=== PATIENT | male | born 1945 | race Caucasian/White ===

== ENCOUNTER 2017-03-12 09:53 | Day surgery (SDC) | payer MEDICARE ==
[2017-03-04 11:10] VITALS: BMI 29.4
[~2017-03-12 09:53] MED LIST: HEPARIN SODIUM,PORCINE 5,000 UNIT/ML 1 ML VIAL SQ ONE; LACTATED RINGERS 1,000 ML IV SCH; MORPHINE SULFATE 4 MG/ML SYRINGE IV PRN; ceFAZolin IN SWFI 2 GM/20 ML SYRINGE IVP ONE
--- NOTE | 2017-03-12 10:56 | P.GSHP ---
History of Present Illness H&P Date: 03/12/17 CHIEF COMPLAINT: Inguinal hernia, left. HISTORY OF PRESENT ILLNESS: The patient is a 59-year-old male who presents with a history of swelling and pain along the left groin. He's noted increased swelling including pain of the area. Now he presents for repair of his inguinal hernia. PAST MEDICAL HISTORY: Please see list. PAST SURGICAL HISTORY: Please see list. MEDICATIONS: Please see list. ALLERGIES: Please see list. SOCIAL HISTORY: No illicit drug use FAMILY HISTORY: No reports of Crohn disease or ulcerative colitis. REVIEW OF ORGAN SYSTEMS: CONSTITUTIONAL: No reports of fevers or chills. No reports of weight loss despite prior attempts. GI: Denies any blood in stools or constipation. PHYSICAL EXAM: VITAL SIGNS: Stable GENERAL: Well-developed pleasant male in no acute distress. HEENT: No scleral icterus. Extraocular movements grossly intact. Moist buccal mucosa. NECK: Supple without lymphadenopathy. CHEST: Unlabored respirations. Equal bilateral excursions. CARDIOVASCULAR: Regular rate and rhythm. Distal 2+ pulses. ABDOMEN: Soft, nondistended. No peritoneal signs. Palpable defect of the left groin. MUSCULOSKELETAL: No clubbing, cyanosis, or edema. ASSESSMENT: 1. Inguinal hernia, left and symptomatic. PLAN: 1. Recommend proceeding with robotic inguinal repair with mesh with possible bilateral approach. 2. Benefits and risks of surgical intervention was discussed including possibility of open technique. 3. May need overnight observation pending anticipated postoperative pain. 4. DVT prophylaxis. 5. Antibiotic prophylaxis. Past Medical History Past Medical History: CVA/TIA, GERD/Reflux Additional Past Medical History / Comment(s): 2 CVAs, L inguinal hernia. History of Any Multi-Drug Resistant Organisms: None Reported Past Surgical History: Orthopedic Surgery Additional Past Surgical History / Comment(s): Colonoscopy with perforation and emergency surgery to repair. R shoulder fracture with surgery. Past Anesthesia/Blood Transfusion Reactions: No Reported Reaction Past Psychological History: No Psychological Hx Reported Additional Psychological History / Comment(s): Pt resides with his spouse. He is independent. Smoking Status: Former smoker Past Alcohol Use History: Daily Additional Past Alcohol Use History / Comment(s): couple beers a day and stopping 03/04/17 for surgery Past Drug Use History: None Reported - Past Family History Mother Family Medical History: Renal Disease Additional Family Medical History / Comment(s): polycystic kidney disease Father Family Medical History: Myocardial Infarction ([place]) Additional Family Medical History / Comment(s): Father at the age of 80yrs from probable [place]. Medications and Allergies Home Medications Medication Instructions Recorded Confirmed Type Aspirin 325 mg PO DAILY 01/13/17 03/04/17 History Omeprazole 40 mg PO DAILY #90 capsule. 01/14/17 03/04/17 Rx Allergies Allergy/AdvReac Type Severity Reaction Status Date / Time No Known Allergies Allergy Verified 03/04/17 11:10 Surgical - Exam Vital Signs Temp Pulse Resp BP 97.8 F 68 18 161/77 03/12/17 10:52 03/12/17 10:52 03/12/17 10:52 03/12/17 10:52
[2017-03-12] MEDS ORDERED: DEXAMETHASONE SOD PHOSPHATE 10 MG/ML 1 ML VIAL IV STA (10:58)
[2017-03-12] MEDS ORDERED: LIDOCAINE 1% 20 ML VIAL (10MG/ML) FOR IV START INTRADERMA ONE (11:16)
[2017-03-12] MEDS: ONDANSETRON 4 MG/2 ML VIAL IVP STA ×2 (11:26→16:19)
[2017-03-12] MEDS ORDERED: MIDAZOLAM 2 MG/2 ML VIAL ONE (14:21)
[2017-03-12] MEDS ORDERED: PROPOFOL 10 MG/ML 20 ML VIAL IV ONE (14:21)
[2017-03-12] MEDS ORDERED: SUCCINYLCHOLINE CHLORIDE 100 MG/5 ML SYR IV ONE (14:21)
[2017-03-12] MEDS ORDERED: GLYCOPYRROLATE 0.2 MG/ML 2 ML VIAL ONE (14:21)
[2017-03-12] MEDS ORDERED: fentaNYL (PF) 50 MCG/ML 2 ML AMP ONE (14:21)
[2017-03-12] MEDS ORDERED: ROCURONIUM BROMIDE 10 MG/ML 10 ML VIAL IV ONE (14:21)
[2017-03-12] MEDS ORDERED: LIDOCAINE 1% INJ 10MG/ML (20 ML MDV) ONE (14:21)
[2017-03-12] MEDS ORDERED: NEOSTIGMINE 1 MG/ML 10 ML VIAL ONE (14:21)
[2017-03-12] MEDS ORDERED: BUPIVACAINE (PF) 0.25% 30 ML VIAL SQ ONE (14:54)
[2017-03-12] MEDS ORDERED: LACTATED RINGERS 1,000 ML IV ONE (15:05)
[2017-03-12 15:08] LABS: Anisocytosis Slight; Basophils % (A) 1 %; Eosinophils % (A) 0 %; HCT 40.1 % (39.0-53.0); HGB 13.2 gm/dL (13.0-17.5); Lymphocytes # (A) 0.4 k/uL (1.0-4.8); Lymphocytes % (A) 7 %; MCH 31.3 pg (25.0-35.0); MCHC 32.9 g/dL (31.0-37.0); MCV 95.2 fL (80.0-100.0); Mean Platelet Volume 7.7; Monocytes # (A) 0.1 k/uL (0-1.0); Monocytes % (A) 2 %; Neutrophils # (A) 5.5 k/uL (1.3-7.7); Neutrophils % (A) 90 %; Platelet Count 185 k/uL (150-450); RBC 4.21 m/uL (4.30-5.90); RDW 18.5 % (11.5-15.5); WBC 6.2 k/uL (3.8-10.6)
[2017-03-12 15:21] LABS: ALT 41 U/L (21-72); AST 22 U/L (17-59); Albumin 3.6 g/dL (3.5-5.0); Alkaline Phosphatase 48 U/L (38-126); Anion Gap 11 mmol/L; Blood Urea Nitrogen 11 mg/dL (9-20); Calcium 9.1 mg/dL (8.4-10.2); Carbon Dioxide 20 mmol/L (22-30); Chloride 106 mmol/L (98-107); Glucose 112 mg/dL (74-99); Potassium 4.5 mmol/L (3.5-5.1); Sodium 137 mmol/L (137-145); Total Bilirubin 0.6 mg/dL (0.2-1.3)
[2017-03-12] MEDS ORDERED: TAMSULOSIN 0.4 MG CAP.ER.24H PO STA ×2 (15:59→19:55)
[2017-03-12] MEDS ORDERED: ACETAMINOPHEN TAB 325 MG TAB PO PRN (16:02)
[2017-03-12] MEDS ORDERED: NALOXONE 0.4 MG/ML 1 ML VIAL IV PRN (16:02)
[2017-03-12 16:04] VITALS: TEMP 98.3
[2017-03-12 16:06] VITALS: RESP 16
--- NOTE | 2017-03-12 16:11 | P.PCN ---
Date of Procedure: 03/12/17 Preoperative Diagnosis: Symptomatic large left inguinal hernia with incarceration Postoperative Diagnosis: Same, large direct inguinal hernia on 4 cm initial, left indirect hernia 1 cm Procedure(s) Performed: Robotic assisted laparoscopic reduction and repair of incarcerated left inguinal hernia with mesh Anesthesia: MARICRUZ, local Surgeon: Taryn Aranda Estimated Blood Loss (ml): 5 Pathology: other (Inguinal hernia sac) Condition: stable Disposition: same day
[2017-03-12] MEDS: HYDROmorphone 0.5 MG/0.5 ML SYRINGE IVP PRN ×2 (16:19→16:28)
[2017-03-12 20:34] VITALS: BP 128/72; PULSE 99
--- NOTE | 2017-04-18 21:14 | P.OP ---
Date of Procedure: 03/12/17 Description of Procedure: SURGEON: KRZYSZTOF CARRASCO MD ASSISTANTS: 1. KARL FUENTES 2. BARTOLOME LOVE PREOPERATIVE DIAGNOSES: 1. Symptomatic large left inguinal hernia with incarceration 2. History of cerebrovascular accident. 3. Gastroesophageal reflux disease. POSTOPERATIVE DIAGNOSES: 1. Symptomatic large left inguinal hernia, direct, with incarceration 2. History of cerebrovascular accident. 3. Gastroesophageal reflux disease. 4. Right inguinal hernia, direct. OPERATION: 1. Robotic-assisted da Ros[employer] Xi laparoscopic reduction and repair of incarcerated left inguinal hernia with mesh, 11.[address] 2. Robotic-assisted da Rosales Xi laparoscopic excision of incarcerated left inguinal lipoma. ANESTHESIA: General with local anesthetic ESTIMATED BLOOD LOSS: 5 mL. SPECIMENS REMOVED: other (Left inguinal lipoma) COMPLICATIONS: None. Condition: stable Disposition: same day INDICATIONS: The patient is a 58-year-old gentleman who presents with history of right groin swelling. He has a personal history of previous left inguinal hernia repair. Now presents for definitive surgical intervention. Laparoscopic versus open and robotic approaches were discussed. Benefits and risks including bleeding, infection, and injury to the vas deferens as well as sterility and chronic groin pain were reviewed. Placement of mesh was also described. Informed consent was obtained. DESCRIPTION: In the preoperative area, the patient was marked with indelible marker along the inguinal hernia. The patient was brought to the operating room and initially laid in supine position. The abdomen had been prepped and draped in standard sterile fashion. Ioban draping was also placed. Conroy catheter was placed. Prior to incision, a timeout protocol was confirmed with surgical team regarding patient's name including procedures to be performed and location along the right groin. Initial positioning for the robotic assisted ports were selected whereby 20 cm superior to the target anatomy, 0 degree 5 mm laparoscopic trocar entry was performed at the left upper quadrant. The abdomen was insufflated to 15 mmHg which he had tolerated well. Additionally, 4 cm direct inguinal hernia along the left groin was found. Next, along the epigastrium, 8 mm robot trocar was placed. An 8-mm robotic trocar was placed under direct visualization at the right upper quadrant. The 5 mm port was exchanged for an 8 mm trocar. All trocars were positioned 8 to 10-cm apart from each other. The Da Rosales XI robot was primed, draped, prepared for docking along the left side of the patient. I then went to the [employer] Xi console. The recovery assistant was at bedside for exchange of the robot arms and equipment. At the left groin, a 4 cm direct inguinal hernia and 1-cm indirect inguinal hernia was identified. The sigmoid colon was also identified along the hernia sac. The sigmoid colon was reduced. The hernia sac was evaginated whereby the peritoneum was scored using Endo scissors with cautery. Once completely reduced into the abdominal cavity, the peritoneal sac of the hernia was stripped and a lipoma of the left groin was reduced. The sac was resected and then passed off for further pathological analysis. The size of the hernia defect was 4 cm with intraoperative films obtained. Using a 2-0 Surgidac, the peritoneal defect of the left inguinal hernia site was closed using a pursestring suture of 2-0 Surgidac. The defect was found to be completely closed with complete reduction of the left inguinal hernia was confirmed. A separate right inguinal hernia was identified however per patient request was undisturbed. As an onlay, an 11.[address] mesh by [employer] was initially cut in half and entered into the abdominal cavity via the 8 mm trocar. The mesh was tacked to the pelvis using 2-0 VLOC x 9-inch length sutures. The robot was undocked from the patient's bedside. I then rescrubbed into the case. The fascial defect was reapproximated using 0-Vicryl and a Jewel Alessandro. Insufflation was released from the abdominal cavity and all instruments were removed from the abdominal cavity. The rest of incisions were reapproximated using 4-0 Monocryl in a running subcuticular fashion. Local anesthetic was placed along the incision including groin block. Incisions were cleansed using dilute hydrogen peroxide. Dermabond was applied to the skin. At the end of the procedure, the needle, sponge and instrument counts had been verified correct by the surgical rn. The patient had tolerated the procedure well and was taken to the postanesthesia care unit in stable condition. FINDINGS: 1. Large left direct inguinal hernia, intial over 4 cm, Nyhus type III, with incarceration. 2. Right direct inguinal hernia 3 cm without incarceration. 3. Left indirect hernia 1 cm Plan - Discharge Summary Discharge Rx Participant: No New Discharge Prescriptions: New Tamsulosin [Flomax] 0.4 mg PO ONCE #5 cap.er.24h Continue Aspirin 325 mg PO DAILY Omeprazole 40 mg PO DAILY #90 capsule. Discharge Medication List Aspirin 325 mg PO DAILY 01/13/17 [History] Omeprazole 40 mg PO DAILY #90 capsule. 01/14/17 [Rx] Tamsulosin [Flomax] 0.4 mg PO ONCE #5 cap.er.24h 03/12/17 [Rx] Follow up Appointment(s)/Referral(s): Krzysztof Carrasco MD [STAFF PHYSICIAN] - 03/17/17 (MARLETTE... Call to confirm time) Patient Instructions/Handouts: *Surgery [facility] - (Anesthesia) Discharge Instructions Outpatient Surgery, Laparoscopic Herniorrhaphy (DC) Activity/Diet/Wound Care/Special Instructions: No lifting oVER 4 pounds in 2 weeks. May shower. No bath tub soaks. OK TO RESUME ASPIRIN AND TAKE NORCO ALREADY PRESCRIBED AT HOME FOR PAIN. Discharge Disposition: HOME SELF-CARE
== END 2017-03-12 20:30 | disposition home or self-care (01) ==
LOC: OR 09:53
PROVIDERS: ATTEND Surgery Plastic and Reconstructive Surgery
DX: K40.30 Unilateral inguinal hernia, with obstruction, without gangrene, not specified as recurrent (principal); K21.9 Gastro-esophageal reflux disease without esophagitis; Z86.73 Personal history of transient ischemic attack (TIA), and cerebral infarction without residual deficits; Z87.891 Personal history of nicotine dependence; Z79.82 Long term (current) use of aspirin; Z79.899 Other long term (current) drug therapy
CPT/HCPCS: 49650; 93005; 80053; 85025; 88302; C1781; J2250; J1644; J1100; J2710; J0690; J2405; J2001; J3010; J0330; J2704; J1170

== ENCOUNTER 2019-02-10 03:58 | Inpatient (IN) | payer MEDICARE ==
[2019-02-10] MEDS ORDERED: HYDROmorphone 1 MG/ML 1 ML SYRINGE IVP STA (04:01)
[2019-02-10] MEDS ORDERED: SODIUM CHLORIDE 0.9% 500 ML 500 ML IV ONE ×2 (04:01→05:09)
[2019-02-10 04:31] LABS: Anisocytosis Slight; Basophils # (A) 0.2 k/uL (0-0.2); Basophils % (A) 2 %; Eosinophils # (A) 0.1 k/uL (0-0.7); Eosinophils % (A) 1 %; HCT 51.3 % (39.0-53.0); HGB 16.9 gm/dL (13.0-17.5); Lymphocytes # (A) 0.3 k/uL (1.0-4.8); Lymphocytes % (A) 3 %; MCH 32.3 pg (25.0-35.0); MCHC 32.9 g/dL (31.0-37.0); MCV 98.2 fL (80.0-100.0); Mean Platelet Volume 7.9; Monocytes # (A) 0.6 k/uL (0-1.0); Monocytes % (A) 5 %; Neutrophils % (A) 89 %; Platelet Count 232 k/uL (150-450); RBC 5.22 m/uL (4.30-5.90); RDW 16.5 % (11.5-15.5); WBC 11.2 k/uL (3.8-10.6)
[2019-02-10 04:39] LABS: Albumin 4.2 g/dL (3.5-5.0); Calcium 9.1 mg/dL (8.4-10.2); Total Bilirubin 0.7 mg/dL (0.2-1.3); Total Protein 7.1 g/dL (6.3-8.2)
[2019-02-10] MEDS ORDERED: HYDROmorphone 1 MG/ML 1 ML SYRINGE IVP PRN ×2 (04:43→09:05)
[2019-02-10] MEDS ORDERED: HYDROmorphone 0.5 MG/0.5 ML SYRINGE IVP PRN (04:43)
[2019-02-10] MEDS ORDERED: ONDANSETRON 4 MG/2 ML VIAL IVP PRN ×2 (04:43→09:05)
[2019-02-10] MEDS ORDERED: NALOXONE 0.4 MG/ML 1 ML VIAL IV PRN ×3 (04:43→09:51)
[2019-02-10 04:50] LABS: INR 0.9 (<1.2); Prothrombin Time 9.9 sec (9.0-12.0)
--- NOTE | 2019-02-10 04:55 | ED ---
General Adult HPI - General Chief complaint: Abdominal Pain Stated complaint: Abd Pain Time Seen by Provider: 02/10/19 04:01 Source: patient, EMS, RN notes reviewed, old records reviewed Mode of arrival: EMS Limitations: no limitations - History of Present Illness Initial comments: 73-year-old male presents for evaluation of abdominal pain, abdominal di stention. Patient was transferred from outside facility with CT findings of intraperitoneal free air. Patient developed sudden onset abdominal pain and distention. Approximately 9 PM. He states he put her at 6 PM. He has previous history of bowel perforation in 2017 following a colonoscopy. He had several episodes of vomiting prior to transfer. He received multiple doses of antiemetics and pain medication without significant improvement. At the time of arrival he continues to complain of severe abdominal pain. - Related Data Home Medications Medication Instructions Recorded Confirmed Aspirin 325 mg PO DAILY 01/13/17 03/04/17 Previous Rx's Medication Instructions Recorded Omeprazole 40 mg PO DAILY #90 capsule. 01/14/17 Tamsulosin [Flomax] 0.4 mg PO ONCE #5 cap.er.24h 03/12/17 Allergies Allergy/AdvReac Type Severity Reaction Status Date / Time No Known Allergies Allergy Verified 03/04/17 11:10 Review of Systems ROS Statement: Those systems with pertinent positive or pertinent negative responses have been documented in the HPI. ROS Other: All systems not noted in ROS Statement are negative. Past Medical History Past Medical History: CVA/TIA, GERD/Reflux Additional Past Medical History / Comment(s): 2 CVAs, L inguinal hernia. History of Any Multi-Drug Resistant Organisms: None Reported Past Surgical History: Orthopedic Surgery Additional Past Surgical History / Comment(s): Colonoscopy with perforation and emergency surgery to repair. R shoulder fracture with surgery. Past Anesthesia/Blood Transfusion Reactions: No Reported Reaction Past Psychological History: No Psychological Hx Reported Smoking Status: Former smoker Past Alcohol Use History: Daily Past Drug Use History: None Reported - Past Family History Mother Family Medical History: Renal Disease Additional Family Medical History / Comment(s): polycystic kidney disease Father Family Medical History: Myocardial Infarction ([place]) Additional Family Medical History / Comment(s): Father at the age of 80yrs from probable [place]. General Exam Limitations: no limitations General appearance: alert, in no apparent distress Head exam: Present: atraumatic, normocephalic Eye exam: Present: normal appearance, PERRL ENT exam: Present: mucous membranes dry Neck exam: Present: normal inspection. Absent: tenderness, meningismus Respiratory exam: Present: normal lung sounds bilaterally. Absent: respiratory distress, wheezes Cardiovascular Exam: Present: normal rhythm, tachycardia GI/Abdominal exam: Present: distended, tenderness, guarding, rebound, rigid Extremities exam: Present: normal inspection, normal capillary refill. Absent: pedal edema Neurological exam: Present: alert, oriented X3, CN II-XII intact. Absent: motor sensory deficit Psychiatric exam: Present: normal affect, normal mood Skin exam: Present: warm, dry, intact. Absent: cyanosis, diaphoretic Course Vital Signs 02/10/19 02/10/19 04:00 04:31 Temperature 98.6 F Pulse Rate 112 H 115 H Respiratory 18 18 Rate Blood Pressure 179/103 164/108 O2 Sat by Pulse 93 L 94 L Oximetry Medical Decision Making - Medical Decision Making 73-year-old male with intraperitoneal free air. CT reviewed by myself and discussed with the radiologist, he has intraperitoneal free air in the left upper abdomen. personally reviewed the CT, there was concern for volvulus. NG tube was placed in the emergency department. He's continued on IV antibiotics, given pain medication. NPO All laboratory studies are repeated these are pending. I discussed case with Dr. Bonilla he will be admitted to general surgery with plan for surgery at 6:30 AM. - Lab Data Result diagrams: 02/10/19 04:16 02/10/19 04:16 Lab Results 02/10/19 02/10/19 02/10/19 Range/Units 04:16 04:16 04:16 WBC 11.2 H (3.8-10.6) k/uL RBC 5.22 (4.30-5.90) m/uL Hgb 16.9 (13.0-17.5) gm/dL Hct 51.3 (39.0-53.0) % MCV 98.2 (80.0-100.0) fL MCH 32.3 (25.0-35.0) pg MCHC 32.9 (31.0-37.0) g/dL RDW 16.5 H (11.5-15.5) % Plt Count 232 (150-450) k/uL Neutrophils % 89 % Lymphocytes % 3 % Monocytes % 5 % Eosinophils % 1 % Basophils % 2 % Neutrophils # 10.0 H (1.3-7.7) k/uL Lymphocytes # 0.3 L (1.0-4.8) k/uL Monocytes # 0.6 (0-1.0) k/uL Eosinophils # 0.1 (0-0.7) k/uL Basophils # 0.2 (0-0.2) k/uL Anisocytosis Slight PT (9.0-12.0) sec INR (<1.2) APTT (22.0-30.0) sec Sodium 136 L (137-145) mmol/L Potassium 4.0 (3.5-5.1) mmol/L Chloride 104 (98-107) mmol/L Carbon Dioxide 21 L (22-30) mmol/L Anion Gap 11 mmol/L BUN 16 (9-20) mg/dL Creatinine 0.99 (0.66-1.25) mg/dL Est GFR (CKD-EPI)AfAm 86 (>60 ml/min/1.73 sqM) Est GFR (CKD-EPI)NonAf 74 (>60 ml/min/1.73 sqM) Glucose 188 H (74-99) mg/dL Plasma Lactic Acid Jason (0.7-2.0) mmol/L Calcium 9.1 (8.4-10.2) mg/dL Total Bilirubin 0.7 (0.2-1.3) mg/dL AST 29 (17-59) U/L ALT 20 (4-49) U/L Alkaline Phosphatase 70 (38-126) U/L Total Protein 7.1 (6.3-8.2) g/dL Albumin 4.2 (3.5-5.0) g/dL Blood Type Blood Type Confirm Blood Type Recheck No Previous Record Bld Type Recheck Status CABO Indicated Antibody Screen Spec Expiration Date 02/13/2019 - 231502/10/19 02/10/19 02/10/19 Range/Units 04:16 04:16 04:16 WBC (3.8-10.6) k/uL RBC (4.30-5.90) m/uL Hgb (13.0-17.5) gm/dL Hct (39.0-53.0) % MCV (80.0-100.0) fL MCH (25.0-35.0) pg MCHC (31.0-37.0) g/dL RDW (11.5-15.5) % Plt Count (150-450) k/uL Neutrophils % % Lymphocytes % % Monocytes % % Eosinophils % % Basophils % % Neutrophils # (1.3-7.7) k/uL Lymphocytes # (1.0-4.8) k/uL Monocytes # (0-1.0) k/uL Eosinophils # (0-0.7) k/uL Basophils # (0-0.2) k/uL Anisocytosis PT 9.9 (9.0-12.0) sec INR 0.9 (<1.2) APTT 22.0 (22.0-30.0) sec Sodium (137-145) mmol/L Potassium (3.5-5.1) mmol/L Chloride (98-107) mmol/L Carbon Dioxide (22-30) mmol/L Anion Gap mmol/L BUN (9-20) mg/dL Creatinine (0.66-1.25) mg/dL Est GFR (CKD-EPI)AfAm (>60 ml/min/1.73 sqM) Est GFR (CKD-EPI)NonAf (>60 ml/min/1.73 sqM) Glucose (74-99) mg/dL Plasma Lactic Acid Jason 1.8 (0.7-2.0) mmol/L Calcium (8.4-10.2) mg/dL Total Bilirubin (0.2-1.3) mg/dL AST (17-59) U/L ALT (4-49) U/L Alkaline Phosphatase (38-126) U/L Total Protein (6.3-8.2) g/dL Albumin (3.5-5.0) g/dL Blood Type Blood Type Confirm B Positive Blood Type Recheck Bld Type Recheck Status Antibody Screen Spec Expiration Date 02/10/19 Range/Units 04:18 WBC (3.8-10.6) k/uL RBC (4.30-5.90) m/uL Hgb (13.0-17.5) gm/dL Hct (39.0-53.0) % MCV (80.0-100.0) fL MCH (25.0-35.0) pg MCHC (31.0-37.0) g/dL RDW (11.5-15.5) % Plt Count (150-450) k/uL Neutrophils % % Lymphocytes % % Monocytes % % Eosinophils % % Basophils % % Neutrophils # (1.3-7.7) k/uL Lymphocytes # (1.0-4.8) k/uL Monocytes # (0-1.0) k/uL Eosinophils # (0-0.7) k/uL Basophils # (0-0.2) k/uL Anisocytosis PT (9.0-12.0) sec INR (<1.2) APTT (22.0-30.0) sec Sodium (137-145) mmol/L Potassium (3.5-5.1) mmol/L Chloride (98-107) mmol/L Carbon Dioxide (22-30) mmol/L Anion Gap mmol/L BUN (9-20) mg/dL Creatinine (0.66-1.25) mg/dL Est GFR (CKD-EPI)AfAm (>60 ml/min/1.73 sqM) Est GFR (CKD-EPI)NonAf (>60 ml/min/1.73 sqM) Glucose (74-99) mg/dL Plasma Lactic Acid Jason (0.7-2.0) mmol/L Calcium (8.4-10.2) mg/dL Total Bilirubin (0.2-1.3) mg/dL AST (17-59) U/L ALT (4-49) U/L Alkaline Phosphatase (38-126) U/L Total Protein (6.3-8.2) g/dL Albumin (3.5-5.0) g/dL Blood Type B Positive Blood Type Confirm Blood Type Recheck Bld Type Recheck Status Antibody Screen NEGATIVE Spec Expiration Date Disposition Clinical Impression: Sigmoid volvulus Disposition: ADMITTED IP TO THIS [facility] Condition: Serious Is patient prescribed a controlled substance at d/c from ED?: No Referrals: Lacey Alexandra MD [Primary Care Provider] - 1-2 days Decision to Admit Reason: Admit from EC Decision Date: 02/10/19 Decision Time: 05:12
--- NOTE | 2019-02-10 05:32 | XR ---
INDICATION: NG placement COMPARISON: CXR 01/13/17 FINDINGS: Portable AP view of the chest is provided. There are low lung volumes with bronchovascular crowding. There are opacities at the left lung base. There is no pleural effusion or pneumothorax. Cardiomediastinal silhouette and pulmonary vascularity are normal. Enteric tube extends to the stomach. There are no acute osseous findings. IMPRESSION: 1. Enteric tube extends to the stomach. 2. Left basilar opacities, atelectasis or infiltrate.
--- NOTE | 2019-02-10 06:44 | P.GSHP ---
History of Present Illness H&P Date: 02/10/19 Chief Complaint: cecal volvulus 73-year-old male went to [facility] emergency department complaining of abdominal bloating. Pain began yesterday evening. He was found have an elevated white blood cell count. Mildly tachycardic. CAT scan was performed. Initially I was called stating the patient had a distended stomach with free air. CAT scan was reviewed and reveals evidence of cecal volvulus with ischemic changes. No definitive free air seen. Nasogastric tube was placed in the ER without significant output. - Review of Systems Comment: The patient denies any acute changes in vision or hearing, no dysphagia or odynophagia, no chest pain or shortness of breath, no dysuria or hematuria, no headache, no runny nose, no rectal bleeding or melena, no unexplained weight loss Past Medical History Past Medical History: CVA/TIA, GERD/Reflux Additional Past Medical History / Comment(s): 2 CVAs, L inguinal hernia. History of Any Multi-Drug Resistant Organisms: None Reported Past Surgical History: Orthopedic Surgery Additional Past Surgical History / Comment(s): Colonoscopy with perforation and emergency surgery to repair. R shoulder fracture with surgery. Past Anesthesia/Blood Transfusion Reactions: No Reported Reaction Past Psychological History: No Psychological Hx Reported Smoking Status: Former smoker Past Alcohol Use History: Daily Past Drug Use History: None Reported - Past Family History Mother Family Medical History: Renal Disease Additional Family Medical History / Comment(s): polycystic kidney disease Father Family Medical History: Myocardial Infarction ([place]) Additional Family Medical History / Comment(s): Father at the age of 80yrs from probable [place]. Medications and Allergies Home Medications Medication Instructions Recorded Confirmed Type Aspirin 325 mg PO DAILY 01/13/17 03/04/17 History Omeprazole 40 mg PO DAILY #90 capsule. 01/14/17 03/04/17 Rx Tamsulosin [Flomax] 0.4 mg PO ONCE #5 cap.er.24h 03/12/17 Rx Allergies Allergy/AdvReac Type Severity Reaction Status Date / Time No Known Allergies Allergy Verified 03/04/17 11:10 Surgical - Exam Vital Signs Temp Pulse Resp BP Pulse Ox 98.6 F 112 H 18 179/103 93 L 02/10/19 04:00 02/10/19 04:00 02/10/19 04:00 02/10/19 04:00 02/10/19 04:00 Physical exam: General: Well-developed, well-nourished, mild distress HEENT: Normocephalic, sclerae nonicteric Abdomen: diffuse tenderness and abdominal distention noted, peritoneal signs present Extremities: No edema Neuro: Alert and oriented Results - Labs 02/10/19 04:16 02/10/19 04:16 Abnormal Lab Results - Last 24 Hours (Table) 02/10/19 02/10/19 Range/Units 04:16 04:16 WBC 11.2 H (3.8-10.6) k/uL RDW 16.5 H (11.5-15.5) % Neutrophils # 10.0 H (1.3-7.7) k/uL Lymphocytes # 0.3 L (1.0-4.8) k/uL Sodium 136 L (137-145) mmol/L Carbon Dioxide 21 L (22-30) mmol/L Glucose 188 H (74-99) mg/dL Diabetes panel 02/10/19 Range/Units 04:16 Sodium 136 L (137-145) mmol/L Potassium 4.0 (3.5-5.1) mmol/L Chloride 104 (98-107) mmol/L Carbon Dioxide 21 L (22-30) mmol/L BUN 16 (9-20) mg/dL Creatinine 0.99 (0.66-1.25) mg/dL Glucose 188 H (74-99) mg/dL Calcium 9.1 (8.4-10.2) mg/dL AST 29 (17-59) U/L ALT 20 (4-49) U/L Alkaline Phosphatase 70 (38-126) U/L Total Protein 7.1 (6.3-8.2) g/dL Albumin 4.2 (3.5-5.0) g/dL Calcium panel 02/10/19 Range/Units 04:16 Calcium 9.1 (8.4-10.2) mg/dL Albumin 4.2 (3.5-5.0) g/dL Pituitary panel 02/10/19 Range/Units 04:16 Sodium 136 L (137-145) mmol/L Potassium 4.0 (3.5-5.1) mmol/L Chloride 104 (98-107) mmol/L Carbon Dioxide 21 L (22-30) mmol/L BUN 16 (9-20) mg/dL Creatinine 0.99 (0.66-1.25) mg/dL Glucose 188 H (74-99) mg/dL Calcium 9.1 (8.4-10.2) mg/dL Adrenal panel 02/10/19 Range/Units 04:16 Sodium 136 L (137-145) mmol/L Potassium 4.0 (3.5-5.1) mmol/L Chloride 104 (98-107) mmol/L Carbon Dioxide 21 L (22-30) mmol/L BUN 16 (9-20) mg/dL Creatinine 0.99 (0.66-1.25) mg/dL Glucose 188 H (74-99) mg/dL Calcium 9.1 (8.4-10.2) mg/dL Total Bilirubin 0.7 (0.2-1.3) mg/dL AST 29 (17-59) U/L ALT 20 (4-49) U/L Alkaline Phosphatase 70 (38-126) U/L Total Protein 7.1 (6.3-8.2) g/dL Albumin 4.2 (3.5-5.0) g/dL Assessment and Plan (1) Cecal volvulus Narrative/Plan: clinical scenario discussed with the patient. Patient requires laparotomy with right colectomy. Plan anastomosis at this time. Risks of bleeding, infection, leak, abscess, obstruction, hernia, sepsis, anesthesia related count locations. He understands and wishes to proceed. Current Visit: Yes Status: Acute Code(s): K56.2 - VOLVULUS SNOMED Code(s): 210922851
[2019-02-10] MEDS ORDERED: ROCURONIUM BROMIDE 10 MG/ML 10 ML VIAL IV ONE (06:51)
[2019-02-10] MEDS ORDERED: GLYCOPYRROLATE 0.2 MG/ML 2 ML VIAL ONE (06:51)
[2019-02-10] MEDS ORDERED: LIDOCAINE 1% INJ 10MG/ML (20 ML MDV) ONE (06:51)
[2019-02-10] MEDS ORDERED: SUCCINYLCHOLINE CHLORIDE 100 MG/5 ML SYR IV ONE (06:51)
[2019-02-10] MEDS ORDERED: fentaNYL (PF) 50 MCG/ML 2 ML AMP ONE (06:51)
[2019-02-10] MEDS ORDERED: PROPOFOL 10 MG/ML 20 ML VIAL IV ONE (06:51)
[2019-02-10] MEDS ORDERED: NEOSTIGMINE 1 MG/ML 10 ML VIAL ONE (06:51)
[2019-02-10] MEDS ORDERED: metroNIDAZOLE-NS PMX 500 MG in SALINE 1 100ML.BAG IVPB STA (06:56)
[2019-02-10] MEDS ORDERED: LACTATED RINGERS 1,000 ML IV ONE ×3 (06:58→10:41)
[2019-02-10] MEDS ORDERED: SODIUM CHLORIDE 0.9% 100 ML with ceFAZolin 2,000 MG IV ONE ×2 (07:10)
[2019-02-10] MEDS ORDERED: METOCLOPRAMIDE 5 MG/ML 2 ML VIAL IVP PRN (09:05)
[2019-02-10] MEDS ORDERED: HYDROmorphone 0.5 MG/0.5 ML SYRINGE IVP ONE (09:23)
--- NOTE | 2019-02-10 09:34 | P.OP ---
Date of Procedure: 02/10/19 Procedure(s) Performed: PREOPERATIVE DIAGNOSIS: Cecal volvulus POSTOPERATIVE DIAGNOSIS: Cecal volvulus with full-thickness necrosis PROCEDURE: Exporter laparotomy with right colectomy, repair incisional hernia SURGEON: Chad EBL: 50 mL ANESTHESIA: Gen. COMPLICATIONS: None OPERATIVE PROCEDURE: Patient's place never table in the supine position. The patient was placed under general anesthesia. The abdomen was prepped and draped sterilely. A midline incision was made from extending below the umbilicus to the subxiphoid. The subcutaneous tissues and fascia were divided using electrocautery. The patient's cecum was immediately identified and noted to have full-thickness necrosis with significant distention. Had not perforated yet. An 18-gauge needle was placed within the bowel and the gas was evacuated. This allowed us to manipulate the colon. Small hole was closed using a 3-0 silk stitch. The bowel was untwisted at that point. A formal right colectomy then took place. The bowel was divided proximal to the ischemic segment in the terminal ileum using a linear 75 stapler. The lateral attachments were divided using blunt dissection and cautery. The omentum was dissected away from the proximal transverse colon and the proximal transverse colon was then divided using a linear 75 stapler. The mesentery of the right colon was divided using both 0 silk ties and the LigaSure device. The specimen was passed off. Copious irrigation took place at that time. No bleeding was seen. A [id number] anastomosis then took place between the terminal ileum and the transverse colon in an antiperistaltic manner. The antimesenteric portion of the staple line was excised. The linear 75 stapler was fired along the antimesenteric border. The remaining defect was closed transversely using a TX 60 device. A TX 60 stapler line was indicated using 3-0 GI silk sutures. A 3-0 GI silk crotch stitch was placed. The abdomen was again irrigated with no bleeding seen. I then reapproximated the fascia using 2 separate running double-stranded #1 PDS sutures. It should be noted that during our entrance into the abdomen a small incisional hernia was identified in the supra umbilical location. This was dissected fully and the fascial closure was incorporated into our midline fascial closure. The subcutaneous tissues were then closed using 3-0 Vicryl sutures. The skin was closed using adarsh. 3 separate openings were left in the midline wound 4 nico. Telfa nico were placed. Outer dressings were applied. It should be noted that the colon surgery closure set was utilized for the closure. DISPOSITION: Stable to recovery room
[2019-02-10] MEDS ORDERED: diphenhydrAMINE 50 MG/ML 1 ML VIAL IVP PRN (09:51)
[2019-02-10] MEDS: ROPIVACAINE 250 MG, HYDROMORPHONE (PF) 5 MG in SODIUM CHLORIDE 0.9% 200 ML EPIDURAL PRN (10:32)
--- NOTE | 2019-02-10 14:28 | P.CONS ---
History of Present Illness - Reason for Consult leukocytosis ,sepsis, bowel ischemia - History of Present Illness patient is a 71-year-old male came in with complaints of abdominal pain severe pain found to have volvulus and ischemia underwent emergent expiratory laparotomy Colonic resection with end-to-end anastomosis. Patient pain is much better patient denied any fever chills nausea vomiting, still has abdominal pain.patient is found to have full-thicknessnecrosis of sigmoid from volvulus. Review of Systems REVIEW OF SYSTEMS: CONSTITUTIONAL: No fever, no malaise, no fatigue. HEENT: No recent visual problems or hearing problems. Denied any sore throat. CARDIOVASCULAR: No chest pain, orthopnea, PND, no palpitations, no syncope. PULMONARY: No shortness of breath, no cough, no hemoptysis. GASTROINTESTINAL: as mentioned in HPI NEUROLOGICAL: No headaches, no weakness, no numbness. HEMATOLOGICAL: Denies any bleeding or petechiae. GENITOURINARY: Denies any burning micturition, frequency, or urgency. MUSCULOSKELETAL/RHEUMATOLOGICAL: Denies any joint pain, swelling, or any muscle pain. ENDOCRINE: Denies any polyuria or polydipsia. The rest of the 14-point review of systems is negative. Past Medical History Past Medical History: CVA/TIA, GERD/Reflux Additional Past Medical History / Comment(s): 2 CVAs, L inguinal hernia. History of Any Multi-Drug Resistant Organisms: None Reported Past Surgical History: Orthopedic Surgery Additional Past Surgical History / Comment(s): Colonoscopy with perforation and emergency surgery to repair. R shoulder fracture with surgery. Past Anesthesia/Blood Transfusion Reactions: No Reported Reaction Past Psychological History: No Psychological Hx Reported Smoking Status: Former smoker Past Alcohol Use History: Daily Past Drug Use History: None Reported - Past Family History Mother Family Medical History: Renal Disease Additional Family Medical History / Comment(s): polycystic kidney disease Father Family Medical History: Myocardial Infarction (NM) Additional Family Medical History / Comment(s): Father at the age of 80yrs from probable NM. Medications and Allergies Home Medications Medication Instructions Recorded Confirmed Type Aspirin 325 mg PO DAILY 01/13/17 02/10/19 History Omeprazole 40 mg PO DAILY #90 capsule. 01/14/17 02/10/19 Rx Fish Oil/Dha/Epa [Fish Oil 1,200 1 cap PO DAILY 02/10/19 02/10/19 History mg Fish Oil] Fluticasone Nasal [place] [Flonase 1 spray EA NOSTRIL DAILY 02/10/19 02/10/19 History Nasal Magnolia] Allergies Allergy/AdvReac Type Severity Reaction Status Date / Time No Known Allergies Allergy Verified 02/10/19 10:38 Physical Exam Vitals: Vital Signs Temp Pulse Pulse Resp BP BP Pulse Ox 02/10/19 14:15 95 16 107/53 97 02/10/19 13:30 91 16 107/67 97 02/10/19 12:30 91 16 112/59 97 02/10/19 11:45 92 16 109/56 95 02/10/19 11:32 97 16 105/52 95 02/10/19 11:15 91 16 98/57 95 02/10/19 11:01 95 16 94/58 95 02/10/19 10:45 103 H 16 87/51 95 02/10/19 10:30 104 H 16 95/52 95 02/10/19 10:15 106 H 16 92/55 95 02/10/19 10:00 113 H 16 89/51 95 02/10/19 09:45 105 H 16 134/65 95 02/10/19 09:30 109 H 16 139/67 95 02/10/19 09:16 110 H 16 170/88 95 02/10/19 09:01 112 H 16 173/77 95 02/10/19 08:47 97.4 F L 114 H 16 189/75 95 02/10/19 06:18 98.6 F 110 H 18 148/94 89 L 02/10/19 04:31 115 H 18 164/108 94 L 02/10/19 04:00 98.6 F 112 H 18 179/103 93 L Intake and Output 02/09/19 02/10/19 02/10/19 22:59 06:59 14:59 Intake Total 900 1000 Output Total 950 Balance 900 50 Intake: IV 900 1000 Output: Urine 900 Estimated Blood Loss 50 Other: Weight 92.986 kg 92.986 kg PHYSICAL EXAMINATION: GENERAL: The patient is alert and oriented x3, not in any acute distress. Well developed, well nourished. HEENT: Pupils are round and equally reacting to light. EOMI. No scleral icterus. No conjunctival pallor. Normocephalic, atraumatic. No pharyngeal erythema. No thyromegaly. CARDIOVASCULAR: S1 and S2 present. No murmurs, rubs, or gallops. PULMONARY: Chest is clear to auscultation, no wheezing or crackles. ABDOMEN: Sabdominal binder in place bowel sounds sluggish MUSCULOSKELETAL: No joint swelling or deformity. EXTREMITIES: No cyanosis, clubbing, or pedal edema. NEUROLOGICAL: Gross neurological examination did not reveal any focal deficits. SKIN: No rashes. Results CBC & Chem 7: 02/10/19 04:16 02/10/19 04:16 Labs: Abnormal Lab Results - Last 24 Hours (Table) 02/10/19 02/10/19 Range/Units 04:16 04:16 WBC 11.2 H (3.8-10.6) k/uL RDW 16.5 H (11.5-15.5) % Neutrophils # 10.0 H (1.3-7.7) k/uL Lymphocytes # 0.3 L (1.0-4.8) k/uL Sodium 136 L (137-145) mmol/L Carbon Dioxide 21 L (22-30) mmol/L Glucose 188 H (74-99) mg/dL Assessment and Plan Plan: bowel ischemia secondary to volvulus: Patient is status post bowel resection patient is presently on Zosyn and metronidazole, IV fluids at rate of 100 mL/h -gastroesophageal reflux disease -Leukocytosis secondary to bowel ischemia -tachycardia secondary to sepsis and infection as mentioned above which improved now
[2019-02-10] MEDS: SODIUM CHLORIDE 0.9% 1,000 ML IV SCH ×2 (14:54→17:05)
[2019-02-10] MEDS: PIPERACILLIN-TAZOBACTAM 3.375 GM in SODIUM CHLORIDE 0.9% 100 ML IVPB SCH ×2 (14:54→15:15)
[2019-02-10] MEDS: metroNIDAZOLE-NS PMX 500 MG in SALINE 1 100ML.BAG IVPB SCH (15:15)
[2019-02-10] MEDS: HEPARIN SODIUM,PORCINE 5,000 UNIT/ML 1 ML VIAL SQ SCH (15:30)
[2019-02-11] MEDS: HEPARIN SODIUM,PORCINE 5,000 UNIT/ML 1 ML VIAL SQ SCH ×4 (01:12→23:45)
[2019-02-11] MEDS: PIPERACILLIN-TAZOBACTAM 3.375 GM in SODIUM CHLORIDE 0.9% 100 ML IVPB SCH ×4 (01:12→23:44)
[2019-02-11] MEDS: metroNIDAZOLE-NS PMX 500 MG in SALINE 1 100ML.BAG IVPB SCH ×4 (01:13→23:45)
[2019-02-11] MEDS: SODIUM CHLORIDE 0.9% 1,000 ML IV SCH ×2 (06:10→22:26)
[2019-02-11 07:33] LABS: Anisocytosis Slight; Basophils % (A) 0 %; Eosinophils % (A) 0 %; HCT 34.1 % (39.0-53.0); Hypochromasia Slight; Lymphocytes # (A) 0.6 k/uL (1.0-4.8); Lymphocytes % (A) 10 %; MCH 33.4 pg (25.0-35.0); MCHC 33.1 g/dL (31.0-37.0); MCV 100.9 fL (80.0-100.0); Macrocytosis Slight; Mean Platelet Volume 8.1; Monocytes # (A) 0.4 k/uL (0-1.0); Monocytes % (A) 6 %; Neutrophils # (A) 5.3 k/uL (1.3-7.7); Neutrophils % (A) 82 %; Platelet Count 162 k/uL (150-450); RBC 3.38 m/uL (4.30-5.90); RDW 16.6 % (11.5-15.5); WBC 6.5 k/uL (3.8-10.6)
[2019-02-11 07:42] LABS: Albumin 2.7 g/dL (3.5-5.0); Calcium 7.5 mg/dL (8.4-10.2); Potassium 4.1 mmol/L (3.5-5.1); Total Bilirubin 0.7 mg/dL (0.2-1.3); Total Protein 5.1 g/dL (6.3-8.2)
[2019-02-11 08:03] LABS: HGB 11.3 gm/dL (13.0-17.5)
--- NOTE | 2019-02-11 11:35 | P.PN ---
Progress Note - Text Progress Note Date: 02/11/19 patient's resting comfortably in his bed. He denies any significant pain. On exam is lesser stable. His abdomen soft. Incision sites clean and intact.. Patient's had no significant flatus or bowel function. He'll remain nothing by mouth.
[2019-02-11] MEDS: ROPIVACAINE 250 MG, HYDROMORPHONE (PF) 5 MG in SODIUM CHLORIDE 0.9% 200 ML EPIDURAL PRN (19:33)
--- NOTE | 2019-02-11 21:33 | P.PN ---
Progress Note - Text Progress Note Date: 02/11/19 73 yo male s/p Ex Lap with right colectomy POD#1 and Lumbar epidural catheter day #2. Infusion at 6ml/hr. Denies pruritis, motor/sensory deficits. VAS from 2-4/10 in severity dependent on activity. Unable to assess epidural catheter site. No back pain. Plan is to continue epidural infusion.
[2019-02-12] MEDS: metroNIDAZOLE-NS PMX 500 MG in SALINE 1 100ML.BAG IVPB SCH ×3 (07:15→23:47)
[2019-02-12] MEDS: PIPERACILLIN-TAZOBACTAM 3.375 GM in SODIUM CHLORIDE 0.9% 100 ML IVPB SCH ×3 (07:15→23:47)
[2019-02-12] MEDS: HEPARIN SODIUM,PORCINE 5,000 UNIT/ML 1 ML VIAL SQ SCH ×3 (07:15→23:47)
--- NOTE | 2019-02-12 09:36 | P.PN ---
Subjective Progress Note Date: 02/11/19 71-year-old admitted for volvulus and ischemia of the colon as of the valvular is. Patient underwent laparotomy colonic end-to-end anastomosis patient has an NG tube was draining last night not much draining today. Patient is on IV fluids and patient still has an epidural with sluggish bowel sounds. Patient did not pass gas yet did not move his bowels yet Constitutional: Denied any fatigue denied any fever. Cardio vascular: denied any chest pain, palpitations Gastrointestinal denied any nausea vomiting Pulmonary: Denied any shortness of breath cough Neurologic denied any new focal deficits All inpatient medications were reviewed and appropriate changes in these medications as dictated in the interval history and assessment and plan. Objective - Vital Signs Vital signs: Vital Signs Temp 98.1 F 02/12/19 07:20 Pulse 79 02/12/19 07:20 Resp 16 02/12/19 07:20 BP 130/71 02/12/19 07:20 Pulse Ox 91 L 02/12/19 07:20 Intake & Output 02/11/19 02/12/19 02/12/19 18:59 06:59 18:59 Intake Total 136.1 Output Total 700 600 Balance -700 -463.9 Intake: Intake, IV Titration 136.1 Amount Ropivacaine 250 mg 61.1 Hydromorphone (Pf) 5 mg In Sodium Chloride 0.9% 200 ml @ Per Protocol EPIDURAL .Q0M PRN Rx#: [id number] Sodium Chloride 0.9% 1, 75 000 ml @ 75 mls/hr IV . [id number] [facility] Rx#:[id number] Output: Urine 700 600 Other: Voiding Method Indwelling Catheter Indwelling Catheter Indwelling Catheter - Exam PHYSICAL EXAMINATION: GENERAL: The patient is alert and oriented x3, not in any acute distress. Well developed, well nourished. HEENT: Pupils are round and equally reacting to light. EOMI. No scleral icterus. No conjunctival pallor. Normocephalic, atraumatic. No pharyngeal erythema. No thyromegaly. CARDIOVASCULAR: S1 and S2 present. No murmurs, rubs, or gallops. PULMONARY: Chest is clear to auscultation, no wheezing or crackles. ABDOMEN: Sabdominal binder in place bowel sounds sluggish, NG tube in place with the improving drainage. MUSCULOSKELETAL: No joint swelling or deformity. EXTREMITIES: No cyanosis, clubbing, or pedal edema. NEUROLOGICAL: Gross neurological examination did not reveal any focal deficits. SKIN: No rashes. - Labs CBC & Chem 7: 02/11/19 07:01 02/11/19 07:01 Assessment and Plan Plan: bowel ischemia secondary to volvulus: Patient is status post bowel resection patient is presently on Zosyn and metronidazole, IV fluids at rate of 100 mL/h patient is status post laparotomy and an anastomosis and patient has an NG tube in place patient still has an epidural place -gastroesophageal reflux disease -Leukocytosis secondary to bowel ischemia of improved now patient is on Zosyn at this time -tachycardia secondary to sepsis and infection as mentioned above which improved now
--- NOTE | 2019-02-12 11:48 | P.PN ---
Subjective 71-year-old admitted for volvulus and ischemia of the colon as of the valvular is. Patient underwent laparotomy colonic end-to-end anastomosis patient has an NG tube was draining last night not much draining today. Patient is on IV fluids and patient still has an epidural with sluggish bowel sounds. Patient did not pass gas yet did not move his bowels yet 02/12/2019 patient doesn't have any significant NG tube drainage today but had about one and half liters yesterday patient does have bowel sounds is passing gas. Patient wanted NG tube out today patient is a normal saline at the 75 mL per hour leukocytosis resolved Constitutional: Denied any fatigue denied any fever. Cardio vascular: denied any chest pain, palpitations Gastrointestinal denied any nausea vomiting Pulmonary: Denied any shortness of breath cough Neurologic denied any new focal deficits All inpatient medications were reviewed and appropriate changes in these medica tions as dictated in the interval history and assessment and plan. Objective - Vital Signs Vital signs: Vital Signs Temp 98.1 F 02/12/19 07:20 Pulse 79 02/12/19 07:20 Resp 16 02/12/19 07:20 BP 130/71 02/12/19 07:20 Pulse Ox 91 L 02/12/19 07:20 Intake & Output 02/11/19 02/12/19 02/12/19 18:59 06:59 18:59 Intake Total 136.1 Output Total 700 600 Balance -700 -463.9 Intake: Intake, IV Titration 136.1 Amount Ropivacaine 250 mg 61.1 Hydromorphone (Pf) 5 mg In Sodium Chloride 0.9% 200 ml @ Per Protocol EPIDURAL .Q0M PRN Rx#: [id number] Sodium Chloride 0.9% 1, 75 000 ml @ 75 mls/hr IV . [id number] [facility] Rx#:[id number] Output: Urine 700 600 Other: Voiding Method Indwelling Catheter Indwelling Catheter Indwelling Catheter - Exam PHYSICAL EXAMINATION: GENERAL: The patient is alert and oriented x3, not in any acute distress. Well developed, well nourished. HEENT: Pupils are round and equally reacting to light. EOMI. No scleral icterus. No conjunctival pallor. Normocephalic, atraumatic. No pharyngeal erythema. No thyromegaly. CARDIOVASCULAR: S1 and S2 present. No murmurs, rubs, or gallops. PULMONARY: Chest is clear to auscultation, no wheezing or crackles. ABDOMEN: abdominal binder in place bowel sounds present, NG tube in place with the improving drainage. MUSCULOSKELETAL: No joint swelling or deformity. EXTREMITIES: No cyanosis, clubbing, or pedal edema. NEUROLOGICAL: Gross neurological examination did not reveal any focal deficits. SKIN: No rashes. - Labs CBC & Chem 7: 02/11/19 07:01 02/11/19 07:01 Assessment and Plan Plan: bowel ischemia secondary to volvulus: Patient is status post bowel resection patient is presently on Zosyn and metronidazole, IV fluids at rate of 75 mL/h patient is status post laparotomy and an anastomosis and patient has an NG tube in place patient still has an epidural place an NG tube drainage has come down did pass gas -gastroesophageal reflux disease -Leukocytosis secondary to bowel ischemia of improved now patient is on Zosyn at this time, leukocytosis resolved -tachycardia secondary to sepsis and infection as mentioned above which improved now
[2019-02-12] MEDS: SODIUM CHLORIDE 0.9% 1,000 ML IV SCH ×2 (11:52→21:30)
--- NOTE | 2019-02-12 12:52 | P.PN ---
Progress Note - Text Progress Note Date: 02/12/19 73-year-old male status post exporter laparotomy with right colectomy postop day #2, epidural catheter day #3 patient doing well VAS 0 out of 10 in severity. He's been ambulating sitting in chair with no complications. Does not endorse any back pain, motor weakness, sensory deficits. Conroy catheter still in place and can be removed if okayed by surgical team. Overall patient doing well and will maintain current settings of 6 ML's an hour until removal of catheter tomorrow.
--- NOTE | 2019-02-12 14:20 | P.PN ---
Progress Note - Text Progress Note Date: 02/12/19 the patient is resting comfortably in his bed. He's had flatus today. He denies any significant abdominal pain. On exam his vital signs are stable. His abdomen soft. Incision sites clean and intact. Status post right colectomy. Patient will start clear liquid diet
--- NOTE | 2019-02-13 06:27 | P.PN ---
Progress Note - Text Progress Note Date: 02/13/19 73-year-old male status post exporter laparotomy postop day #3 epidural catheter day #4. Epidural infusions running at 6 ML's an hour seeing of bupivacaine and fentanyl. Patient denies any pruritus, motor dysfunction, sensory dysfunction. He's ambulating well. VAS between a 0-2 out of 10 in severity. Epidural catheter were removed today. Please remove catheter prior to subcu heparin dose, wait 2 hours prior to admission heparin dose after catheter removal.
[2019-02-13] MEDS: PIPERACILLIN-TAZOBACTAM 3.375 GM in SODIUM CHLORIDE 0.9% 100 ML IVPB SCH ×2 (08:31→17:16)
[2019-02-13] MEDS: metroNIDAZOLE-NS PMX 500 MG in SALINE 1 100ML.BAG IVPB SCH ×3 (08:31→23:14)
[2019-02-13 09:03] LABS: Anisocytosis Slight; HCT 30.1 % (39.0-53.0); HGB 10.1 gm/dL (13.0-17.5); MCH 33.1 pg (25.0-35.0); MCHC 33.6 g/dL (31.0-37.0); MCV 98.7 fL (80.0-100.0); Mean Platelet Volume 7.7; Platelet Count 194 k/uL (150-450); RBC 3.05 m/uL (4.30-5.90); RDW 16.2 % (11.5-15.5); WBC 7.6 k/uL (3.8-10.6)
[2019-02-13 09:10] LABS: African American GFR (CKD) >90 (>60 ml/min/1.73 sqM); Albumin 2.5 g/dL (3.5-5.0); Carbon Dioxide 26 mmol/L (22-30); Non-African American GFR(CKD) 87 (>60 ml/min/1.73 sqM); Total Protein 4.9 g/dL (6.3-8.2)
[2019-02-13 09:15] LABS: ALT 18 U/L (4-49); AST 46 U/L (17-59); Alkaline Phosphatase 46 U/L (38-126); Anion Gap 4 mmol/L; Blood Urea Nitrogen 12 mg/dL (9-20); Calcium 7.6 mg/dL (8.4-10.2); Chloride 105 mmol/L (98-107); Glucose 115 mg/dL (74-99); Sodium 135 mmol/L (137-145)
[2019-02-13] MEDS ORDERED: HYDROcodone/APAP 5-325MG 1 EACH TAB PO PRN (11:24)
--- NOTE | 2019-02-13 11:26 | P.PN ---
Subjective Progress Note Date: 02/13/19 Principal diagnosis: Cecal volvulus Patient doing well today. Passing flatus. No bowel movement. Denies nausea or vomiting. White blood cell count normal at 7.6. Hemoglobin 10.1. Epidural was removed. Pain well-controlled. Objective - Vital Signs Vital signs: Vital Signs Temp 98.8 F 02/13/19 07:45 Pulse 82 02/13/19 07:45 Resp 17 02/13/19 07:45 BP 153/70 02/13/19 07:45 Pulse Ox 95 02/13/19 07:45 Intake & Output 02/12/19 02/13/19 02/13/19 18:59 06:59 18:59 Intake Total 620 1805 150 Output Total 525 1200 Balance 95 605 150 Intake: Intake, IV Titration 1025 Amount Piperacillin-Tazobactam 3 100 .375 gm In Sodium Chloride 0.9% 100 ml @ 25 mls/hr IVPB Q8HR [facility] Rx# :[id number] Sodium Chloride 0.9% 1, 825 000 ml @ 75 mls/hr IV . [id number] [facility] Rx#:[id number] metroNIDAZOLE-NS PMX 500 100 mg In Saline 1 100ml.bag @ 100 mls/hr IVPB Q8HR [facility] Rx#:[id number] Oral 620 780 150 Output: Urine 525 1200 Other: Voiding Method Indwelling Catheter Indwelling Catheter Indwelling Catheter # Voids 1 - Exam Abdomen: Soft, nondistended, 3 nico sites clean with minimal drainage, mild tenderness - Labs CBC & Chem 7: 02/13/19 08:20 02/13/19 08:20 Labs: Abnormal Lab Results - Last 24 Hours (Table) 02/13/19 02/13/19 Range/Units 08:20 08:20 RBC 3.05 L (4.30-5.90) m/uL Hgb 10.1 L (13.0-17.5) gm/dL Hct 30.1 L (39.0-53.0) % RDW 16.2 H (11.5-15.5) % Sodium 135 L (137-145) mmol/L Glucose 115 H (74-99) mg/dL Calcium 7.6 L (8.4-10.2) mg/dL Total Protein 4.9 L (6.3-8.2) g/dL Albumin 2.5 L (3.5-5.0) g/dL Assessment and Plan (1) Cecal volvulus Narrative/Plan: Begin local [facility]. Advance diet as tolerated. Add Flomax. Remove Conroy. Oral pain meds. Ambulate. Current Visit: Yes Status: Acute Code(s): K56.2 - VOLVULUS SNOMED Code(s): 272941278
[2019-02-13] MEDS: HEPARIN SODIUM,PORCINE 5,000 UNIT/ML 1 ML VIAL SQ SCH ×2 (12:34→17:17)
[2019-02-13] MEDS: TAMSULOSIN 0.4 MG CAP.ER.24H PO SCH (12:34)
[2019-02-13] MEDS: SODIUM CHLORIDE 0.9% 1,000 ML IV SCH (12:35)
--- NOTE | 2019-02-13 14:24 | P.PN ---
Subjective Progress Note Date: 02/13/19 Principal diagnosis: 71-year-old admitted for volvulus and ischemia of the colon as of the valvular is. Patient underwent laparotomy colonic end-to-end anastomosis patient has an NG tube was draining last night not much draining today. Patient is on IV fluids and patient still has an epidural with sluggish bowel sounds. Patient did not pass gas yet did not move his bowels yet 02/12/2019 patient doesn't have any significant NG tube drainage today but had about one and half liters yesterday patient does have bowel sounds is passing gas. Patient wanted NG tube out today patient is a normal saline at the 75 mL per hour leukocytosis resolved Constitutional: Denied any fatigue denied any fever. Cardio vascular: denied any chest pain, palpitations Gastrointestinal denied any nausea vomiting Pulmonary: Denied any shortness of breath cough Neurologic denied any new focal deficits All inpatient medications were reviewed and appropriate changes in these medications as dictated in the interval history and assessment and plan. 02/13/2019 Patient is sitting up in the chair with family at the bedside in no acute distress. No acute overnight issues. Per nursing staff epidural pump was just removed and patient has been getting up and walking. Diet is being advanced and tolerating. Awaiting Conroy catheter removal today as well. Currently patient denies any chest pain, shortness of breath, or palpitations. Patient is afebrile. Patient denies any nausea or vomiting. Patient states he is passing gas but has not had a bowel movement at this time. Objective - Vital Signs Vital signs: Vital Signs Temp 98.8 F 02/13/19 07:45 Pulse 82 02/13/19 07:45 Resp 17 02/13/19 07:45 BP 153/70 02/13/19 07:45 Pulse Ox 95 02/13/19 07:45 Intake & Output 02/12/19 02/13/19 02/13/19 18:59 06:59 18:59 Intake Total 620 1805 600 Output Total 525 1200 800 Balance 95 605 -200 Intake: Intake, IV Titration 1025 Amount Piperacillin-Tazobactam 3 100 .375 gm In Sodium Chloride 0.9% 100 ml @ 25 mls/hr IVPB Q8HR [facility] Rx# :[id number] Sodium Chloride 0.9% 1, 825 000 ml @ 75 mls/hr IV . [id number] [facility] Rx#:[id number] metroNIDAZOLE-NS PMX 500 100 mg In Saline 1 100ml.bag @ 100 mls/hr IVPB Q8HR [facility] Rx#:[id number] Oral 620 780 600 Output: Urine 525 1200 800 Uretheral (Conroy) 800 Other: Voiding Method Indwelling Catheter Indwelling Catheter Indwelling Catheter # Voids 1 - Exam GENERAL: The patient is alert and oriented x3, not in any acute distress. Well developed, well nourished. HEENT: Pupils are round and equally reacting to light. EOMI. No scleral icterus. No conjunctival pallor. Normocephalic, atraumatic. No pharyngeal erythema. No thyromegaly. CARDIOVASCULAR: S1 and S2 present. No murmurs, rubs, or gallops. PULMONARY: Chest is clear to auscultation, no wheezing or crackles. ABDOMEN: abdominal binder in place bowel sounds present, NG tube in place with the improving drainage. MUSCULOSKELETAL: No joint swelling or deformity. EXTREMITIES: No cyanosis, clubbing, or pedal edema. NEUROLOGICAL: Gross neurological examination did not reveal any focal deficits. SKIN: No rashes. - Labs CBC & Chem 7: 02/13/19 08:20 02/13/19 08:20 Labs: Abnormal Lab Results - Last 24 Hours (Table) 02/13/19 02/13/19 Range/Units 08:20 08:20 RBC 3.05 L (4.30-5.90) m/uL Hgb 10.1 L (13.0-17.5) gm/dL Hct 30.1 L (39.0-53.0) % RDW 16.2 H (11.5-15.5) % Sodium 135 L (137-145) mmol/L Glucose 115 H (74-99) mg/dL Calcium 7.6 L (8.4-10.2) mg/dL Total Protein 4.9 L (6.3-8.2) g/dL Albumin 2.5 L (3.5-5.0) g/dL Assessment and Plan Assessment: -bowel ischemia secondary to volvulus: Patient is status post bowel resection patient is presently on Zosyn and metronidazole, IV fluids at rate of 75 mL/h patient is status post laparotomy and an anastomosis and patient has an NG tube in place patient still has an epidural place an NG tube drainage has come down did pass gas. NG tube and epidural had been removed. Awaiting Conroy catheter removal. No reports of a bowel movement but is passing gas. -gastroesophageal reflux disease -Leukocytosis secondary to bowel ischemia of improved now patient is on Zosyn at this time, leukocytosis resolved -tachycardia secondary to sepsis and infection as mentioned above which improved now
[2019-02-14] MEDS: HEPARIN SODIUM,PORCINE 5,000 UNIT/ML 1 ML VIAL SQ SCH ×3 (00:32→16:31)
[2019-02-14] MEDS: PIPERACILLIN-TAZOBACTAM 3.375 GM in SODIUM CHLORIDE 0.9% 100 ML IVPB SCH ×3 (00:43→17:59)
[2019-02-14] MEDS: SODIUM CHLORIDE 0.9% 1,000 ML IV SCH ×2 (01:05→16:32)
[2019-02-14 07:50] LABS: Anisocytosis Slight; Basophils # (A) 0.1 k/uL (0-0.2); Basophils % (A) 1 %; Eosinophils # (A) 0.2 k/uL (0-0.7); Eosinophils % (A) 2 %; HCT 34.1 % (39.0-53.0); HGB 11.8 gm/dL (13.0-17.5); Lymphocytes % (A) 12 %; MCH 33.4 pg (25.0-35.0); MCHC 34.5 g/dL (31.0-37.0); MCV 96.8 fL (80.0-100.0); Mean Platelet Volume 7.7; Monocytes # (A) 0.5 k/uL (0-1.0); Monocytes % (A) 5 %; Neutrophils # (A) 6.7 k/uL (1.3-7.7); Neutrophils % (A) 78 %; Platelet Count 228 k/uL (150-450); RBC 3.52 m/uL (4.30-5.90); WBC 8.6 k/uL (3.8-10.6)
[2019-02-14] MEDS: TAMSULOSIN 0.4 MG CAP.ER.24H PO SCH (08:12)
[2019-02-14] MEDS: metroNIDAZOLE-NS PMX 500 MG in SALINE 1 100ML.BAG IVPB SCH ×3 (08:12→22:55)
[2019-02-14 08:14] LABS: African American GFR (CKD) >90 (>60 ml/min/1.73 sqM); Anion Gap 9 mmol/L; Blood Urea Nitrogen 10 mg/dL (9-20); Calcium 7.6 mg/dL (8.4-10.2); Carbon Dioxide 21 mmol/L (22-30); Chloride 105 mmol/L (98-107); Glucose 100 mg/dL (74-99); Non-African American GFR(CKD) 89 (>60 ml/min/1.73 sqM); Potassium 3.6 mmol/L (3.5-5.1); Sodium 135 mmol/L (137-145)
--- NOTE | 2019-02-14 10:32 | P.PN ---
Subjective Progress Note Date: 02/14/19 CHIEF COMPLAINT: Cecal volvulus HISTORY OF PRESENT ILLNESS: Patient examined this woman the bedside with Dr. Shook. Patient reports his pain is tolerable at this time. He is passing place and had a bowel movement. He is tolerating full liquid diet. Denies nausea or vomiting. Patient has been up ambulating in the hallway. Vital signs stable. He is afebrile. PHYSICAL EXAM: VITAL SIGNS: Reviewed. GENERAL: Well-developed in no acute distress. HEENT: No sclera icterus. Extraocular movements grossly intact. Moist buccal mucosa. Head is atraumatic, normocephalic. ABDOMEN: Soft. Nondistended. Appropriate surgical tenderness. Dressing clean dry and intact. NEUROLOGIC: Alert and oriented. Cranial nerves II through XII grossly intact. ASSESSMENT: 1. Cecal volvulus with full-thickness necrosis, status post exploratory laparotomy with right colectomy and repair of incisional hernia PLAN: -Continue wound care with daily dressing changes of Telfa nico -Pain control -Incentive spirometer -Increase activity as tolerated -Advance diet as tolerated -Possible discharge home tomorrow. Nurse practitioner note has been reviewed by physician. Signing provider agrees with the documented findings, assessment, and plan of care. Objective - Vital Signs Vital signs: Vital Signs Temp 97.9 F 02/14/19 07:00 Pulse 85 02/14/19 07:00 Resp 18 02/14/19 07:00 BP 153/81 02/14/19 07:00 Pulse Ox 94 L 02/14/19 07:00 Intake & Output 02/13/19 02/14/19 02/14/19 18:59 06:59 18:59 Intake Total 800 Output Total 1050 1500 Balance -250 -1500 Intake: Oral 800 Output: Urine 1050 1500 Uretheral ([place]) 800 Other: Voiding Method Indwelling Catheter Toilet # Voids 1 # Bowel Movements 1 - Labs CBC & Chem 7: 02/14/19 06:59 02/14/19 06:59 Labs: Abnormal Lab Results - Last 24 Hours (Table) 02/14/19 02/14/19 Range/Units 06:59 06:59 RBC 3.52 L (4.30-5.90) m/uL Hgb 11.8 L (13.0-17.5) gm/dL Hct 34.1 L (39.0-53.0) % RDW 16.0 H (11.5-15.5) % Sodium 135 L (137-145) mmol/L Carbon Dioxide 21 L (22-30) mmol/L Glucose 100 H (74-99) mg/dL Calcium 7.6 L (8.4-10.2) mg/dL
--- NOTE | 2019-02-14 11:33 | P.PN ---
Subjective 71-year-old admitted for volvulus and ischemia of the colon as of the valvular is. Patient underwent laparotomy colonic end-to-end anastomosis patient has an NG tube was draining last night not much draining today. Patient is on IV fluids and patient still has an epidural with sluggish bowel sounds. Patient did not pass gas yet did not move his bowels yet 02/12/2019 patient doesn't have any significant NG tube drainage today but had about one and half liters yesterday patient does have bowel sounds is passing gas. Patient wanted NG tube out today patient is a normal saline at the 75 mL per hour leukocytosis resolved 02/14/2019 Resolved NG tube patient was started on diet and tolerating it very very well patient did move his bowels no overnight events. General surgery is planning on discharging him tomorrow Constitutional: Denied any fatigue denied any fever. Cardio vascular: denied any chest pain, palpitations Gastrointestinal denied any nausea vomiting Pulmonary: Denied any shortness of breath cough Neurologic denied any new focal deficits All inpatient medications were reviewed and appropriate changes in these medications as dictated in the interval history and assessment and plan. Objective - Vital Signs Vital signs: Vital Signs Temp 97.9 F 02/14/19 07:00 Pulse 85 02/14/19 07:00 Resp 18 02/14/19 07:00 BP 153/81 02/14/19 07:00 Pulse Ox 94 L 02/14/19 07:00 Intake & Output 02/13/19 02/14/19 02/14/19 18:59 06:59 18:59 Intake Total 800 Output Total 1050 1500 Balance -250 -1500 Intake: Oral 800 Output: Urine 1050 1500 Uretheral (Conroy) 800 Other: Voiding Method Indwelling Catheter Toilet # Voids 1 # Bowel Movements 1 - Exam PHYSICAL EXAMINATION: GENERAL: The patient is alert and oriented x3, not in any acute distress. Well developed, well nourished. HEENT: Pupils are round and equally reacting to light. EOMI. No scleral icterus. No conjunctival pallor. Normocephalic, atraumatic. No pharyngeal erythema. No thyromegaly. CARDIOVASCULAR: S1 and S2 present. No murmurs, rubs, or gallops. PULMONARY: Chest is clear to auscultation, no wheezing or crackles. ABDOMEN: Abdomen is soft nontender nondistended does have bowel sounds MUSCULOSKELETAL: No joint swelling or deformity. EXTREMITIES: No cyanosis, clubbing, or pedal edema. NEUROLOGICAL: Gross neurological examination did not reveal any focal deficits. SKIN: No rashes. - Labs CBC & Chem 7: 02/14/19 06:59 02/14/19 06:59 Labs: Abnormal Lab Results - Last 24 Hours (Table) 02/14/19 02/14/19 Range/Units 06:59 06:59 RBC 3.52 L (4.30-5.90) m/uL Hgb 11.8 L (13.0-17.5) gm/dL Hct 34.1 L (39.0-53.0) % RDW 16.0 H (11.5-15.5) % Sodium 135 L (137-145) mmol/L Carbon Dioxide 21 L (22-30) mmol/L Glucose 100 H (74-99) mg/dL Calcium 7.6 L (8.4-10.2) mg/dL Assessment and Plan Plan: bowel ischemia secondary to volvulus: Patient is status post bowel resection patient is presently on Zosyn and metronidazole, can you with antibiotics as per general surgery no further recommendations from medicine perspective patient can be discharged whenever deceptive appropriate from surgical perspective -gastroesophageal reflux disease -Leukocytosis secondary to bowel ischemia of improved now patient is on Zosyn at this time, leukocytosis resolved
[2019-02-14] MEDS ORDERED: MAG HYDROX/AL HYDROX/SIMETH 30 ML CUP PO PRN (13:36)
[2019-02-14] MEDS: PANTOPRAZOLE 40 MG TABLET PO SCH (13:42)
[2019-02-15] MEDS: HEPARIN SODIUM,PORCINE 5,000 UNIT/ML 1 ML VIAL SQ SCH ×2 (00:06→08:05)
[2019-02-15] MEDS: PIPERACILLIN-TAZOBACTAM 3.375 GM in SODIUM CHLORIDE 0.9% 100 ML IVPB SCH (00:06)
[2019-02-15] MEDS: SODIUM CHLORIDE 0.9% 1,000 ML IV SCH (05:01)
[2019-02-15] MEDS: TAMSULOSIN 0.4 MG CAP.ER.24H PO SCH (08:05)
[2019-02-15] MEDS: PANTOPRAZOLE 40 MG TABLET PO SCH (08:05)
[2019-02-15] MEDS: metroNIDAZOLE-NS PMX 500 MG in SALINE 1 100ML.BAG IVPB SCH (08:06)
[2019-02-15 08:15] VITALS: BP 157/82; PULSE 66; RESP 16; TEMP 98.6
--- NOTE | 2019-02-15 10:06 | P.DS ---
Providers Date of admission: 02/10/19 04:44 Expected date of discharge: 02/15/19 Attending physician: George Bonilla Consults: 02/10/19 09:05 Consult Physician Routine Consulting Provider: Cristiano Salgado Consult Reason/Comments: medical management Do you want consulting provider notified?: Yes Primary care physician: Lacey Alexandra Hospital Course: This a 73-year-old male underwent right colectomy for cecal volvulus. Patient did well postoperatively. Please see hospital chart for details. Procedures: Right colectomy, repair of incisional hernia Patient Condition at Discharge: Good Plan - Discharge Summary Discharge Rx Participant: No New Discharge Prescriptions: New Hydrocodone/Acetaminophen [[place] 5-325] 1 tab PO Q6HR PRN 3 Days #12 tab PRN Reason: Pain No Action Aspirin 325 mg PO DAILY Omeprazole 40 mg PO DAILY #90 capsule. Fluticasone Nasal [place] [Flonase Nasal [place]] 1 spray EA NOSTRIL DAILY Fish Oil/Dha/Epa [Fish Oil 1,200 mg Fish Oil] 1 cap PO DAILY Discharge Medication List Aspirin 325 mg PO DAILY 01/13/17 [History] Omeprazole 40 mg PO DAILY #90 capsule. 01/14/17 [Rx] Fish Oil/Dha/Epa [Fish Oil 1,200 mg Fish Oil] 1 cap PO DAILY 02/10/19 [History] Fluticasone Nasal [place] [Flonase Nasal [place]] 1 spray EA NOSTRIL DAILY 02/10/19 [History] Hydrocodone/Acetaminophen [[place] 5-325] 1 tab PO Q6HR PRN 3 Days #12 tab 02/15/19 [Rx] Follow up Appointment(s)/Referral(s): George Bonilla MD [Medical Doctor] - 1 Week Lacey Alexandra MD [Primary Care Provider] - 1-2 days [facility] [NON-STAFF] - Activity/Diet/Wound Care/Special Instructions: No driving while taking [place] No lifting over 10 pounds You may shower. No soaking or tub baths Very light activity until you are reevaluated at your follow up appointment with your surgeon
--- NOTE | 2019-02-15 17:28 | P.PN ---
Subjective 71-year-old admitted for volvulus and ischemia of the colon as of the valvular is. Patient underwent laparotomy colonic end-to-end anastomosis patient has an NG tube was draining last night not much draining today. Patient is on IV fluids and patient still has an epidural with sluggish bowel sounds. Patient did not pass gas yet did not move his bowels yet 02/12/2019 patient doesn't have any significant NG tube drainage today but had about one and half liters yesterday patient does have bowel sounds is passing gas. Patient wanted NG tube out today patient is a normal saline at the 75 mL per hour leukocytosis resolved 02/14/2019 Removed NG tube patient was started on diet and tolerating it very very well patient did move his bowels no overnight events. General surgery is planning on discharging him tomorrow 02/15/2019 Patient is clinically doing well patient is being discharged today in stable medical condition to home discharge medication reconciliation was reviewed Constitutional: Denied any fatigue denied any fever. Cardio vascular: denied any chest pain, palpitations Gastrointestinal denied any nausea vomiting Pulmonary: Denied any shortness of breath cough Neurologic denied any new focal deficits All inpatient medications were reviewed and appropriate changes in these medications as dictated in the interval history and assessment and plan. Objective - Vital Signs Vital signs: Vital Signs Temp 98.6 F 02/15/19 06:54 Pulse 66 02/15/19 06:54 Resp 16 02/15/19 06:54 BP 157/82 02/15/19 06:54 Pulse Ox 98 02/15/19 06:54 Intake & Output 02/14/19 02/15/19 02/15/19 18:59 06:59 18:59 Other: Voiding Method Toilet # Voids 3 1 # Bowel Movements 2 - Exam PHYSICAL EXAMINATION: GENERAL: The patient is alert and oriented x3, not in any acute distress. Well developed, well nourished. HEENT: Pupils are round and equally reacting to light. EOMI. No scleral icterus. No conjunctival pallor. Normocephalic, atraumatic. No pharyngeal erythema. No thyromegaly. CARDIOVASCULAR: S1 and S2 present. No murmurs, rubs, or gallops. PULMONARY: Chest is clear to auscultation, no wheezing or crackles. ABDOMEN: Abdomen is soft nontender nondistended does have bowel sounds MUSCULOSKELETAL: No joint swelling or deformity. EXTREMITIES: No cyanosis, clubbing, or pedal edema. NEUROLOGICAL: Gross neurological examination did not reveal any focal deficits. SKIN: No rashes. - Labs CBC & Chem 7: 02/14/19 06:59 02/14/19 06:59 Assessment and Plan Plan: bowel ischemia secondary to volvulus: Patient is status post bowel resection patient will be discharged on any antibiotics. -gastroesophageal reflux disease -Leukocytosis secondary to bowel ischemia of improved
== END 2019-02-15 11:55 | disposition home or self-care (01) | DRG 853 ==
LOC: EC 03:58 → 4SSUR 04:44
PROVIDERS: ADMIT Surgery; ATTEND Surgery
PROC: 0WQF0ZZ Repair Abdominal Wall, Open Approach (ICD-10-PCS; principal; 2019-02-10 06:30)
PROC: 0DBF0ZZ Excision of Right Large Intestine, Open Approach (ICD-10-PCS; principal; 2019-02-10 06:30)
DX: A41.9 Sepsis, unspecified organism (principal); K56.2 Volvulus; K55.9 Vascular disorder of intestine, unspecified; K21.9 Gastro-esophageal reflux disease without esophagitis; K43.2 Incisional hernia without obstruction or gangrene; Z79.82 Long term (current) use of aspirin; Z82.49 Family history of ischemic heart disease and other diseases of the circulatory system; Z82.71 Family history of polycystic kidney; Z86.73 Personal history of transient ischemic attack (TIA), and cerebral infarction without residual deficits; Z87.891 Personal history of nicotine dependence
CPT/HCPCS: 36415; 71045; 80048; 80053; 83605; 85025; 85027; 85610; 85730; 86850; 86900; 86901; 88307; 94760; 96361; 96374; 96376; 99285

== ENCOUNTER → 2020-04-30 | Outpatient (CLI) | payer MEDICARE | END | disposition home or self-care (01) | LOC: LABWHC1 12:46 | PROVIDERS: ATTEND Surgery Plastic and Reconstructive Surgery | DX: I11.9 Hypertensive heart disease without heart failure (principal); I23.2 Ventricular septal defect as current complication following acute myocardial infarction; R94.31 Abnormal electrocardiogram [ECG] [EKG] | CPT/HCPCS: 36415; 93005 ==

== ENCOUNTER → 2020-04-30 | Outpatient (CLI) | payer MEDICARE ==
--- NOTE | 2020-04-30 15:38 | CT ---
EXAMINATION TYPE: CT abdomen pelvis wo con DATE OF EXAM: 04/30/2020 COMPARISON: HISTORY: follow up known periumbilical hernia CT DLP: 815 mGycm Automated exposure control for dose reduction was used. TECHNIQUE: Helical acquisition of images from the lung bases through the pelvis. FINDINGS: Lack of intravenous contrast could compromise sensitivity. Anterior abdominal wall hernia i s present in the supraumbilical location with a wide mouth measuring 4.5 cm and containing fat, the u mbilical level there is hernia containing bowel loops and fat. Left inguinal hernia contains fat grea ter than on the right. LUNG BASES: No significant abnormality is appreciated. AORTA: No significant abnormality is appreciated. LIVER/GB: Dependent high attenuation within the gallbladder consistent with stones. Liver shows no ma ss.. PANCREAS: No significant abnormality is seen. SPLEEN: No significant abnormality is seen. ADRENALS: No significant abnormality is seen. KIDNEYS: No significant abnormality is seen. REPRODUCTIVE ORGANS: Prostate shows associated calcification and is mildly enlarged. URINARY BLADDER: No significant abnormality is seen. BOWEL: Diverticular changes are associated with the colon. Postop change noted in the right upper qu adrant, distended loop of colon is present with air-fluid level FREE AIR: No Free Air is visible. Resolved compared to prior exam. There are ASCITES: None visible. PELVIC ADENOPATHY: None visualized. RETROPERITONEAL ADENOPATHY: No Retroperitoneal Adenopathy visible. OSSEOUS STRUCTURES: Arthropathy is present of the sacroiliac joints, there is degenerative disc burleson ge in the visualized spine with some facet arthropathy. Osteoarthritic change present within the hips .. IMPRESSION: UMBILICAL AND SUPRAUMBILICAL HERNIA
== END ==
LOC: RADCTMAIN 12:11
PROVIDERS: ATTEND Surgery Plastic and Reconstructive Surgery
DX: K42.9 Umbilical hernia without obstruction or gangrene (principal); K43.9 Ventral hernia without obstruction or gangrene
CPT/HCPCS: 36415; 74176; 93005

== ENCOUNTER 2020-05-10 12:52 | Day surgery (SDC) | payer MEDICARE ==
[2020-05-08 14:13] VITALS: BMI 30.8
--- NOTE | 2020-05-10 11:13 | P.GSHP ---
History of Present Illness H&P Date: 05/10/20 CHIEF COMPLAINT: Ventral hernia HISTORY OF PRESENT ILLNESS: The patient is a 74-year-old male who presents with a history of swelling and pain along the abdomen from an incisional hernia. Reports change in bowel habits. His hernia is present for over 6 months. Now he presents for surgical intervention. PAST MEDICAL HISTORY: Please see list and reviewed PAST SURGICAL HISTORY: Please see list and reviewed MEDICATIONS: Please see list and reviewed ALLERGIES: Please see list and reviewed SOCIAL HISTORY: Please see list and reviewed FAMILY HISTORY: Please see list and reviewed REVIEW OF ORGAN SYSTEMS: CONSTITUTIONAL: No fevers or chills. No recent weight loss. EYES: Denies any trouble with vision. Wears glasses. HEENT: No difficulties with hearing. No nosebleeds. No difficulty swallowing. RESPIRATORY: Denies pneumonia. Denies any troubles with breathing or dyspnea on exertion. CARDIOVASCULAR: Past chest pain, palpitations, or recent heart attacks. Has hypertensive heart disease. GASTROINTESTINAL: Denies fatty food intolerance. Has change in bowel habits and gas bloat. Has gastroesophageal reflux disease. GENITOURINARY: Denies any blood in urine or increased urinary frequency. NEUROLOGICAL: Denies any numbness or tingling along the distal extremities. No seizure disorders or headaches. MUSCULOSKELETAL: Denies any back pain, stiffness or joint arthritis. SKIN: No current skin cancer. No rash. PSYCHIATRIC: Denies current depression or suicidal thoughts. ENDOCRINE: Denies current thyroid disorders. Denies any blood sugar glucose intolerance. HEME/LYMPHATIC: Denies any lumps and bumps around the neck. No recent deep venous thrombosis. ALLERGY/IMMUNOLOGY: No immunoglobulin therapy. No immune deficiencies. BREAST: Denies current breast lumps, pain or nipple discharge. PHYSICAL EXAM: VITAL SIGNS: Stable GENERAL: Well-developed pleasant male in no acute distress. HEENT: No scleral icterus. Extraocular movements grossly intact. Moist buccal mucosa. NECK: Supple without lymphadenopathy. CHEST: Unlabored respirations. Equal bilateral excursions. CARDIOVASCULAR: Regular rate and rhythm. Distal 2+ pulses. ABDOMEN: Soft, nondistended. Palpable defect of the abdomen. No peritoneal signs. MUSCULOSKELETAL: No clubbing, cyanosis, or edema. STUDIES: CT of the abdomen and pelvis independently reviewed demonstrating large fat-containing including bowel containing hernia along the midline from his previous incision. This my independent interpretation. REPORT: CT of the abdomen and pelvis report additionally identifies diverticular disease of the colon EKG: Demonstrates new EKG changes with septal wall infarct in comparison to 2018 results. CONSULTATION: Cardiology consultation confirms patient acceptable risk undergoing surgery. ASSESSMENT: 1. Ventral incisional hernia PLAN: 1. Recommend proceeding with robotic ventral hernia repair with mesh. 2. Benefits and risks of surgical intervention was discussed including possibility of open technique. 3. DVT prophylaxis. 4. Antibiotic prophylaxis. 5. Nonnarcotic pain management described Past Medical History Past Medical History: Cancer, CVA/TIA, GERD/Reflux Additional Past Medical History / Comment(s): TIA's-no residual effects, barretts esophagus, hx skin cancer History of Any Multi-Drug Resistant Organisms: None Reported Past Surgical History: Bowel Resection, Orthopedic Surgery Additional Past Surgical History / Comment(s): Colonoscopy with perforation and emergency surgery to repair 2017. Rt shoulder fracture with surgery. bowel re section 2019 to remove 12" colon for twisted bowel, Past Anesthesia/Blood Transfusion Reactions: No Reported Reaction Smoking Status: Former smoker - Past Family History Mother Family Medical History: Renal Disease Additional Family Medical History / Comment(s): polycystic kidney disease Father Family Medical History: Myocardial Infarction ([place]) Additional Family Medical History / Comment(s): Father at the age of 80yrs from probable [place]. Son(s) Family Medical History: Cancer Medications and Allergies Home Medications Medication Instructions Recorded Confirmed Type Aspirin 325 mg PO DAILY 01/13/17 05/08/20 History Omeprazole 40 mg PO DAILY #90 capsule. 01/14/17 05/08/20 Rx Fish Oil/Dha/Epa [Fish Oil 1,200 1 cap PO DAILY 02/10/19 05/08/20 History mg Fish Oil] Allergies Allergy/AdvReac Type Severity Reaction Status Date / Time No Known Allergies Allergy Verified 05/08/20 13:58
[~2020-05-10 12:52] MED LIST changes: +ACETAMINOPHEN TAB 500 MG TAB PO PRN; +GABAPENTIN 300 MG CAP PO PRN; -HEPARIN SODIUM,PORCINE 5,000 UNIT/ML 1 ML VIAL SQ ONE; +HEPARIN SODIUM,PORCINE 5,000 UNIT/ML 1 ML VIAL SQ PRN; -LACTATED RINGERS 1,000 ML IV SCH; +MELOXICAM 7.5 MG TAB PO PRN; -MORPHINE SULFATE 4 MG/ML SYRINGE IV PRN; +TAMSULOSIN 0.4 MG CAP.ER.24H PO PRN; -ceFAZolin IN SWFI 2 GM/20 ML SYRINGE IVP ONE
[2020-05-10] MEDS ORDERED: ONDANSETRON 4 MG/2 ML VIAL ONE (13:15)
[2020-05-10] MEDS ORDERED: LACTATED RINGERS 1,000 ML IV ONE ×2 (13:29→17:41)
[2020-05-10 13:44] LABS: Anisocytosis Slight; Basophils # (A) 0.1 k/uL (0-0.2); Basophils % (A) 1 %; Eosinophils # (A) 0.1 k/uL (0-0.7); Eosinophils % (A) 2 %; HCT 43.3 % (39.0-53.0); Lymphocytes # (A) 1.3 k/uL (1.0-4.8); Lymphocytes % (A) 26 %; MCH 33.6 pg (25.0-35.0); MCHC 34.6 g/dL (31.0-37.0); MCV 97.1 fL (80.0-100.0); Mean Platelet Volume 7.5; Monocytes # (A) 0.4 k/uL (0-1.0); Monocytes % (A) 8 %; Neutrophils % (A) 61 %; Platelet Count 179 k/uL (150-450); RBC 4.46 m/uL (4.30-5.90); RDW 17.4 % (11.5-15.5)
[2020-05-10 13:56] LABS: ALT 21 U/L (4-49); AST 31 U/L (17-59); African American GFR (CKD) >90 (>60 ml/min/1.73 sqM); Albumin 4.5 g/dL (3.5-5.0); Alkaline Phosphatase 48 U/L (38-126); Anion Gap 7 mmol/L; Blood Urea Nitrogen 16 mg/dL (9-20); Calcium 9.3 mg/dL (8.4-10.2); Carbon Dioxide 24 mmol/L (22-30); Chloride 106 mmol/L (98-107); Glucose 110 mg/dL (74-99); Non-African American GFR(CKD) 85 (>60 ml/min/1.73 sqM); Potassium 4.6 mmol/L (3.5-5.1); Sodium 137 mmol/L (137-145); Total Bilirubin 0.9 mg/dL (0.2-1.3); Total Protein 7.2 g/dL (6.3-8.2)
[2020-05-10] MEDS ORDERED: MIDAZOLAM 2 MG/2 ML VIAL IV ONE (13:57)
[2020-05-10] MEDS ORDERED: ROCURONIUM 10 MG/ML (5 ML VIAL) IV ONE (16:20)
[2020-05-10] MEDS ORDERED: LIDOCAINE 1% INJ 10MG/ML (20 ML MDV) ONE (16:20)
[2020-05-10] MEDS ORDERED: HYDROmorphone (PF) 1 MG/ML ONE (16:20)
[2020-05-10] MEDS ORDERED: SUCCINYLCHOLINE CHLORIDE 100 MG/5 ML SYR IV ONE (16:20)
[2020-05-10] MEDS ORDERED: SODIUM CHLORIDE 0.9% (PF) 10 ML VIAL ONE (16:20)
[2020-05-10] MEDS ORDERED: GLYCOPYRROLATE 0.2 MG/ML 2 ML VIAL ONE (16:20)
[2020-05-10] MEDS ORDERED: ROPIVACAINE 5 MG/ML 30 ML VIAL ONE (16:20)
[2020-05-10] MEDS ORDERED: PROPOFOL 10 MG/ML 20 ML VIAL IV ONE (16:20)
[2020-05-10] MEDS ORDERED: NEOSTIGMINE 1 MG/ML 10 ML VIAL ONE (16:20)
[2020-05-10] MEDS ORDERED: fentaNYL (PF) 50 MCG/ML 2 ML AMP ONE (16:20)
[2020-05-10] MEDS ORDERED: BUPIVACAINE-EPI 0.5%-1:200,000 10 ML VIAL SQ ONE (16:47)
[2020-05-10 18:24] VITALS: TEMP 98.3
[2020-05-10 19:02] VITALS: RESP 16
[2020-05-10] MEDS ORDERED: IBUPROFEN 200 MG TAB PO ONE (19:25)
[2020-05-10 19:34] VITALS: BP 161/87; PULSE 99
--- NOTE | 2020-05-10 22:02 | P.ANPRN ---
Procedure Note - Anesthesia - Nerve Block Performed Bilateral Erector Spinae Single Time Out Performed: Yes Date of Procedure: 05/10/20 Procedure Start Time: 14:07 Procedure Stop Time: :27 Location of Patient: PreOp Indication: Acute Post-Operative Pain, Dx/Pain Location, Requested by Surgeon Specifically requested for management of pain by : Taryn Aranda Sedation Type: Sedate with meaningful contact maintained Preparation: Sterile Prep Position: Prone Catheter: None Needle Types: Facet Needle Gauge: 21 Ultrasound used to visualize needle placement: Yes Ultrasound used to observe medication spread: Yes Injectate: 0.5% Ropivacaine (see comment for volume) Blood Aspirated: No Pain Paresthesia on Injection Noted: No Resistance on Injection: Normal Image Stored and Saved: Yes Events: Uneventful and Well Tolerated (30cc 0.5% Ropivacaine with 30cc normal saline)
--- NOTE | 2020-05-11 14:40 | P.OP ---
Date of Procedure: 05/10/20 Description of Procedure: SURGEON: TARYN ARANDA MD PREOPERATIVE DIAGNOSES: 1. Initial incisional ventral hernia with intermittent small bowel obstruction 2. Previous history of large bowel obstruction with cecal volvulus and perforation 3. Gastroesophageal reflux disease with Mathews's esophagus 4. History of transient ischemic attack 5. History of skin cancer POSTOPERATIVE DIAGNOSES: 1. Initial incisional ventral hernia with intermittent small bowel obstruction 2. Previous history of large bowel obstruction with cecal volvulus and perforation 3. Gastroesophageal reflux disease with Mathews's esophagus 4. History of transient ischemic attack 5. History of skin cancer 6. Large indirect right inguinal hernia, initial 7. Recurrent left inguinal hernia 8. Sigmoid diverticulosis 9. Peritoneal adhesions OPERATION: 1. Robotic-assisted daVinci Xi laparoscopic extensive lysis of adhesions 2. Robotic-assisted daVinci Xi laparoscopic repair of initial incarcerated incisional ventral hernia 10 x 17 cm with fascial imbrication [address] 10 x 15 cm mesh ANESTHESIA: General with local ESTIMATED BLOOD LOSS: 10 mL. SPECIMENS: None. COMPLICATIONS: None. Operative Findings: 1. Intra-abdominal adhesions midline to pelvis, greater omentum to abdominal wall 2. Large fascial defect 8 x 6 cm with incarcerated umbilical hernia and subcutaneous defect 10 x 17 cm repaired with fascial imbrication 3 and underlay with mesh 3. Right inguinal hernia, indirect 4. Recurrent left inguinal hernia INDICATIONS: The patient is a 74-year-old male who presents with incisional ventral hernia of the mid abdomen. Cardiac risk assessment was obtained prior. Surgical intervention with laparoscopic versus robotic and open techniques were reviewed. Placement of mesh was also reviewed. Benefits and risks were thoroughly described. Informed consent was obtained. DESCRIPTION OF PROCEDURE: The patient was brought into the operating room and laid in supine position. After general induction, the abdomen had been prepped and draped in standard sterile fashion. Ioban draping was also placed. Prior to incision, a timeout protocol was confirmed with surgical team regarding the patient's name including procedures to be performed. The robot was primed prior to the procedure. A field block using local anesthetis was placed along hernia site including the proposed port sites. Initial incision was made with an #11 blade along the left upper quadrant. A 0 degree 5 mm laparoscopic trocar entry was performed. Diagnostic laparoscopy demonstrated moderate peritoneal adhesions along the midline of greater omentum to the abdominal wall. Three 8 mm trocar were placed along the left lateral abdominal wall after exchanging the 5-mm port. Placements of the ports were 20 cm from the target anatomy and 10 cm apart. An accessory port was placed along the right upper quadrant. The da Rosales XI robot was previously primed, prepped and draped then docked along the right side of the patient. I then sat at the robot Da Rosales XI console where working arms of the robot including Bovie cautery connected to robotic scissors, vessel sealer and graspers placed by the educational program assistant. Adhesions along the midline were addressed with scissors and vessel sealer over 30 minutes. Once the adhesions were cleared, multiple abdominal wall defects were found including recurrent hernia of the left groin and a hernia along the right groin. A ruler was used to measure the subcutaneous defect including the fascial defect of the incisional hernia. The subcutaneous defect was 10 x 17 cm. The fascia was cleaned of peritoneal fat. The measured fascial defect was 6 cm in width and 8 cm in length. The hernia defect was oversewn using nonabsorbable #1 VLOC for fascial imbrication 3. Endoscopic imaging was obtained. A Bard Ventralight ST 10 x 15 cm mesh was selected and oriented. The rough side was placed toward the abdominal wall. The mesh was tacked to the abdominal wall using nonabsorbable 2-0 VLOC. A final endoscopic imaging was obtained. All instruments and pneumoperitoneum were evacuated from the abdominal cavity. The da Rosales XI robot was undocked from the patient. I re-scrubbed into the case for closure of incisions. The incisions were reapproximated using 4-0 Monocryl in an interrupted subcuticular fashion. Liquid glue was applied to the skin. At the end of the procedure, needle, sponge, and instrument count had been verified correct by neurosurgical nurse practitioner. The patient was taken to the postanesthesia care unit in stable condition with abdominal binder. The patient's family was pleased with the level of care. Endoscopic images were provided. Plan - Discharge Summary Discharge Rx Participant: No New Discharge Prescriptions: New Tamsulosin [Flomax] 0.4 mg PO DAILY #7 cap Acetaminophen Tab [Tylenol Tab] 1,000 mg PO Q6HR PRN #30 tablet PRN Reason: Pain Ibuprofen [Motrin] 600 mg PO Q8HR PRN #30 tab PRN Reason: Pain Simethicone [Gas-X] 125 mg PO AC-TID PRN #20 capsule PRN Reason: Abdominal Distention Continue Aspirin 325 mg PO DAILY Omeprazole 40 mg PO DAILY #90 capsule. Fish Oil/Dha/Epa [Fish Oil 1,200 mg Fish Oil] 1 cap PO DAILY Discharge Medication List Aspirin 325 mg PO DAILY 01/13/17 [History] Omeprazole 40 mg PO DAILY #90 capsule. 01/14/17 [Rx] Fish Oil/Dha/Epa [Fish Oil 1,200 mg Fish Oil] 1 cap PO DAILY 02/10/19 [History] Acetaminophen Tab [Tylenol Tab] 1,000 mg PO Q6HR PRN #30 tablet 05/10/20 [Rx] Ibuprofen [Motrin] 600 mg PO Q8HR PRN #30 tab 05/10/20 [Rx] Simethicone [Gas-X] 125 mg PO AC-TID PRN #20 capsule 05/10/20 [Rx] Tamsulosin [Flomax] 0.4 mg PO DAILY #7 cap 05/10/20 [Rx] Follow up Appointment(s)/Referral(s): Taryn Aranda MD [STAFF PHYSICIAN] - 05/14/20 (Please call Wednesday morning after 8 am to confirm time) Patient Instructions/Handouts: *Surgery [facility] - (Anesthesia) Discharge Instructions Outpatient Surgery, Urinary Retention in Men (ED), Laparoscopic Herniorrhaphy (DC), Abdominal Binder (DC), Ventral Hernia Repair (GEN) Activity/Diet/Wound Care/Special Instructions: TAKE TWO FLOMAX WEDNESDAY THROUGH WEDNESDAY. No lifting over 4 pounds in 4 weeks until June 10. May shower. No bath tub soaks for two weeks until May 24 Diet as tolerated. Use Tylenol and ibuprofen or Aleve scheduled for the next 24-48 hours for best pain relief. Use ice along incisions for today to prevent swelling. Discharge Disposition: HOME SELF-CARE
== END 2020-05-10 20:03 | disposition home or self-care (01) ==
LOC: OR 12:52
PROVIDERS: ATTEND Surgery Plastic and Reconstructive Surgery
DX: K43.9 Ventral hernia without obstruction or gangrene (principal); K66.0 Peritoneal adhesions (postprocedural) (postinfection); K40.90 Unilateral inguinal hernia, without obstruction or gangrene, not specified as recurrent; K40.91 Unilateral inguinal hernia, without obstruction or gangrene, recurrent; K21.9 Gastro-esophageal reflux disease without esophagitis; K22.70 Barrett's esophagus without dysplasia; E66.9 Obesity, unspecified; Z68.30 Body mass index [BMI] 30.0-30.9, adult; Z86.73 Personal history of transient ischemic attack (TIA), and cerebral infarction without residual deficits; D64.9 Anemia, unspecified; Z85.828 Personal history of other malignant neoplasm of skin; Z90.49 Acquired absence of other specified parts of digestive tract; Z98.890 Other specified postprocedural states; Z87.891 Personal history of nicotine dependence; Z84.1 Family history of disorders of kidney and ureter; Z82.49 Family history of ischemic heart disease and other diseases of the circulatory system; Z80.9 Family history of malignant neoplasm, unspecified; Z79.82 Long term (current) use of aspirin; Z79.899 Other long term (current) drug therapy
CPT/HCPCS: 64999; 76942; 80053; 85025; 49655; C1781; J2250; J1644; J2710; J0690; J2001; J3010; J1170; J2795; J0330; J2704

== ENCOUNTER 2020-05-18 12:01 | Observation (INO) | payer MEDICARE ==
[2020-05-18] MEDS ORDERED: ACETAMINOPHEN TAB 500 MG TAB PO STA (12:15)
[2020-05-18] MEDS ORDERED: SODIUM CHLORIDE 0.9% 1,000 ML IV STA ×2 (12:15)
[2020-05-18] MEDS ORDERED: ONDANSETRON 4 MG/2 ML VIAL IVP STA (12:15)
[2020-05-18] MEDS ORDERED: KETOROLAC 15 MG/ML 1 ML VIAL IVP STA (12:15)
--- NOTE | 2020-05-18 12:16 | ED ---
Fever HPI - General Chief Complaint: Nausea/Vomiting/Diarrhea Stated Complaint: post op fever, diarrhea, UTI Time Seen by Provider: 05/18/20 12:15 Source: patient, RN notes reviewed, old records reviewed Mode of arrival: ambulatory Limitations: no limitations - History of Present Illness Initial Comments: This is a 74 show male DF for evaluation patient Dese for evaluation of fever. Patient has persistent fever and did have hernia surgery about a week ago. Patient did have postop complications including urinary tract infection diarrhea constipation. Urinary retention has been persistent he feels like he has had decreased output as of late. No cough or congestion no known rashes, wound is clean and dry MD Complaint: fever, weakness, other (No other decreased urine output) -: week(s) Temperature Source: subjective Context: recent procedure, recent antibiotic use Associated Symptoms: chills, nausea, diarrhea, dysuria (decreased urine output) Treatments Prior to Arrival: none - Related Data Home Medications Medication Instructions Recorded Confirmed Aspirin 325 mg PO DAILY 01/13/17 05/18/20 Fish Oil/Dha/Epa [Fish Oil 1,200 1 cap PO DAILY 02/10/19 05/18/20 mg Fish Oil] Naproxen Sodium [Aleve] 220 mg PO DAILY PRN 05/18/20 05/18/20 Previous Rx's Medication Instructions Recorded Omeprazole 40 mg PO DAILY #90 capsule. 01/14/17 Ibuprofen [Motrin] 600 mg PO Q8HR PRN #30 tab 05/10/20 Allergies Allergy/AdvReac Type Severity Reaction Status Date / Time No Known Allergies Allergy Verified 05/18/20 13:00 Review of Systems ROS Statement: Those systems with pertinent positive or pertinent negative responses have been documented in the HPI. ROS Other: All systems not noted in ROS Statement are negative. Past Medical History Past Medical History: Cancer, CVA/TIA, GERD/Reflux Additional Past Medical History / Comment(s): TIA's-no residual effects, barretts esophagus, hx skin cancer History of Any Multi-Drug Resistant Organisms: None Reported Past Surgical History: Bowel Resection, Hernia Repair, Orthopedic Surgery Additional Past Surgical History / Comment(s): Colonoscopy with perforation and emergency surgery to repair 2017. Rt shoulder fracture with surgery. bowel resection 2019 to remove 12" colon for twisted bowel, Past Anesthesia/Blood Transfusion Reactions: No Reported Reaction Past Psychological History: No Psychological Hx Reported Smoking Status: Former smoker Past Alcohol Use History: None Reported Past Drug Use History: None Reported - Past Family History Mother Family Medical History: Renal Disease Additional Family Medical History / Comment(s): polycystic kidney disease Father Family Medical History: Myocardial Infarction ([place]) Additional Family Medical History / Comment(s): Father at the age of 80yrs from probable [place]. Son(s) Family Medical History: Cancer General Exam Limitations: no limitations General appearance: alert, in no apparent distress Head exam: Present: atraumatic, normocephalic, normal inspection Eye exam: Present: normal appearance, PERRL, EOMI. Absent: scleral icterus, conjunctival injection, periorbital swelling ENT exam: Present: normal exam, mucous membranes moist Neck exam: Present: normal inspection. Absent: tenderness, meningismus, ly mphadenopathy Respiratory exam: Present: normal lung sounds bilaterally. Absent: respiratory distress, wheezes, rales, rhonchi, stridor Cardiovascular Exam: Present: regular rate, normal rhythm, normal heart sounds. Absent: systolic murmur, diastolic murmur, rubs, gallop, clicks GI/Abdominal exam: Present: soft, normal bowel sounds. Absent: distended, tenderness, guarding, rebound, rigid Extremities exam: Present: normal inspection, full ROM, normal capillary refill. Absent: tenderness, pedal edema, joint swelling, calf tenderness Back exam: Present: normal inspection Neurological exam: Present: alert, oriented X3, CN II-XII intact Psychiatric exam: Present: normal affect, normal mood Skin exam: Present: warm, dry, intact, normal color. Absent: rash Course Vital Signs 05/18/20 12:05 Temperature 98.6 F Pulse Rate 99 Respiratory 18 Rate Blood Pressure 129/79 O2 Sat by Pulse 98 Oximetry - Reevaluation(s) Reevaluation #1: 05/18/20 14:16 Medical record is reviewed Reevaluation #2: 05/18/20 14:16 Complicated recent surgical history Dictated postop course with gastritis, diarrhea and urinary retention Reevaluation #3: 05/18/20 14:16 Patient does feel improved with fever control and placement of Conroy Medical Decision Making - Medical Decision Making 74 male DF for evaluation patient presents today with persistent fever no current abdominal pain but difficulty with urination. Patient has recurrent urinary retention was almost 800 out on straight cath, Conroy will be placed. Patient be admitted for IV antibiotics - Lab Data Result diagrams: 05/18/20 12:46 05/18/20 12:46 Lab Results 05/18/20 05/18/20 05/18/20 Range/Units 12:46 12:46 12:46 WBC 10.5 (3.8-10.6) k/uL RBC 4.46 (4.30-5.90) m/uL Hgb 14.5 (13.0-17.5) gm/dL Hct 43.6 (39.0-53.0) % MCV 97.7 (80.0-100.0) fL MCH 32.4 (25.0-35.0) pg MCHC 33.1 (31.0-37.0) g/dL RDW 17.7 H (11.5-15.5) % Plt Count 146 L (150-450) k/uL MPV 7.5 Neutrophils % 89 % Lymphocytes % 4 % Monocytes % 6 % Eosinophils % 1 % Basophils % 0 % Neutrophils # 9.3 H (1.3-7.7) k/uL Lymphocytes # 0.4 L (1.0-4.8) k/uL Monocytes # 0.6 (0-1.0) k/uL Eosinophils # 0.1 (0-0.7) k/uL Basophils # 0.0 (0-0.2) k/uL Anisocytosis Slight Macrocytosis Slight PT 10.9 (9.0-12.0) sec INR 1.0 (<1.2) APTT 23.3 (22.0-30.0) sec Sodium 132 L (137-145) mmol/L Potassium 3.8 (3.5-5.1) mmol/L Chloride 100 (98-107) mmol/L Carbon Dioxide 21 L (22-30) mmol/L Anion Gap 11 mmol/L BUN 18 (9-20) mg/dL Creatinine 0.83 (0.66-1.25) mg/dL Est GFR (CKD-EPI)AfAm >90 (>60 ml/min/1.73 sqM) Est GFR (CKD-EPI)NonAf 86 (>60 ml/min/1.73 sqM) Glucose 111 H (74-99) mg/dL Plasma Lactic Acid Jason (0.7-2.0) mmol/L Calcium 8.3 L (8.4-10.2) mg/dL Magnesium 2.0 (1.6-2.3) mg/dL Total Bilirubin 2.2 H (0.2-1.3) mg/dL AST 36 (17-59) U/L ALT 29 (4-49) U/L Alkaline Phosphatase 72 (38-126) U/L Lactate Dehydrogenase 492 (313-618) U/L C-Reactive Protein 87.0 H (<10.0) mg/L Total Protein 6.6 (6.3-8.2) g/dL Albumin 3.9 (3.5-5.0) g/dL Coronavirus (PCR) (Not Detectd) 05/18/20 05/18/20 Range/Units 12:46 13:23 WBC (3.8-10.6) k/uL RBC (4.30-5.90) m/uL Hgb (13.0-17.5) gm/dL Hct (39.0-53.0) % MCV (80.0-100.0) fL MCH (25.0-35.0) pg MCHC (31.0-37.0) g/dL RDW (11.5-15.5) % Plt Count (150-450) k/uL MPV Neutrophils % % Lymphocytes % % Monocytes % % Eosinophils % % Basophils % % Neutrophils # (1.3-7.7) k/uL Lymphocytes # (1.0-4.8) k/uL Monocytes # (0-1.0) k/uL Eosinophils # (0-0.7) k/uL Basophils # (0-0.2) k/uL Anisocytosis Macrocytosis PT (9.0-12.0) sec INR (<1.2) APTT (22.0-30.0) sec Sodium (137-145) mmol/L Potassium (3.5-5.1) mmol/L Chloride (98-107) mmol/L Carbon Dioxide (22-30) mmol/L Anion Gap mmol/L BUN (9-20) mg/dL Creatinine (0.66-1.25) mg/dL Est GFR (CKD-EPI)AfAm (>60 ml/min/1.73 sqM) Est GFR (CKD-EPI)NonAf (>60 ml/min/1.73 sqM) Glucose (74-99) mg/dL Plasma Lactic Acid Jason 1.2 (0.7-2.0) mmol/L Calcium (8.4-10.2) mg/dL Magnesium (1.6-2.3) mg/dL Total Bilirubin (0.2-1.3) mg/dL AST (17-59) U/L ALT (4-49) U/L Alkaline Phosphatase (38-126) U/L Lactate Dehydrogenase (313-618) U/L C-Reactive Protein (<10.0) mg/L Total Protein (6.3-8.2) g/dL Albumin (3.5-5.0) g/dL Coronavirus (PCR) Not Detected (Not Detectd) - EKG Data -: EKG Interpreted by Me (EKG is sinus rhythm 86, MD 172 QRS 106 QTc 445) - Radiology Data Radiology results: report reviewed (Chest x-rays negative for acute disease), image reviewed Disposition Clinical Impression: Dehydration, Urinary retention, Fever, UTI (urinary tract infection) Disposition: ADMITTED IP TO THIS [facility] Condition: Good Is patient prescribed a controlled substance at d/c from ED?: No Referrals: Lacey Alexandra MD [Primary Care Provider] - 1-2 days
[2020-05-18 13:03] LABS: ALT 29 U/L (4-49); AST 36 U/L (17-59); African American GFR (CKD) >90 (>60 ml/min/1.73 sqM); Albumin 3.9 g/dL (3.5-5.0); Alkaline Phosphatase 72 U/L (38-126); Anion Gap 11 mmol/L; Blood Urea Nitrogen 18 mg/dL (9-20); Calcium 8.3 mg/dL (8.4-10.2); Carbon Dioxide 21 mmol/L (22-30); Chloride 100 mmol/L (98-107); Glucose 111 mg/dL (74-99); LDH 492 U/L (313-618); Non-African American GFR(CKD) 86 (>60 ml/min/1.73 sqM); Potassium 3.8 mmol/L (3.5-5.1); Sodium 132 mmol/L (137-145); Total Bilirubin 2.2 mg/dL (0.2-1.3); Total Protein 6.6 g/dL (6.3-8.2)
[2020-05-18 13:11] LABS: Anisocytosis Slight; Basophils % (A) 0 %; Eosinophils # (A) 0.1 k/uL (0-0.7); Eosinophils % (A) 1 %; HCT 43.6 % (39.0-53.0); HGB 14.5 gm/dL (13.0-17.5); Lymphocytes # (A) 0.4 k/uL (1.0-4.8); Lymphocytes % (A) 4 %; MCH 32.4 pg (25.0-35.0); MCHC 33.1 g/dL (31.0-37.0); MCV 97.7 fL (80.0-100.0); Macrocytosis Slight; Mean Platelet Volume 7.5; Monocytes # (A) 0.6 k/uL (0-1.0); Monocytes % (A) 6 %; Neutrophils # (A) 9.3 k/uL (1.3-7.7); Neutrophils % (A) 89 %; Platelet Count 146 k/uL (150-450); RBC 4.46 m/uL (4.30-5.90); RDW 17.7 % (11.5-15.5); WBC 10.5 k/uL (3.8-10.6)
[2020-05-18 13:14] LABS: Partial Thromboplastin Time 23.3 sec (22.0-30.0); Prothrombin Time 10.9 sec (9.0-12.0)
--- NOTE | 2020-05-18 13:21 | XR ---
EXAMINATION TYPE: XR chest 2V DATE OF EXAM: 05/18/2020 COMPARISON: 02/10/2019 HISTORY: Shortness of breath TECHNIQUE: Frontal and lateral views of the chest are obtained. FINDINGS: Scattered senescent parenchymal changes noted. No evidence for infiltrate. No evidence for atelectasis. Heart size is stable. Mediastinal structures are stable and grossly unremarkable. No evidence for hilar prominence. Degenerative changes dorsal spine. IMPRESSION: 1. No evidence for acute pulmonary disease.
[2020-05-18] MEDS ORDERED: NALOXONE 0.4 MG/ML 1 ML VIAL IV PRN (14:12)
[2020-05-18] MEDS ORDERED: MORPHINE SULFATE 4 MG/ML SYRINGE IV PRN (14:12)
[2020-05-18 14:26] LABS: Appearance,Urine Cloudy (Clear); Bacteria,Urine Many /hpf; Bilirubin,Urine Negative (Negative); Blood,Urine Moderate (Negative); Color,Urine Yellow; Glucose,Urine (UA) Negative (Negative); Ketones,Urine 1+ (Negative); Leukocyte Esterase,Urine Moderate (Negative); Mucus,Urine Many /hpf; Nitrite,Urine Positive (Negative); PH, Urine 6.5 (5.0-8.0); Protein,Urine Trace (Negative); RBC,Urine 5 /hpf (0-5); Specific Gravity,Urine 1.024 (1.001-1.035); WBC,Urine 33 /hpf (0-5)
[2020-05-18] MEDS ORDERED: IOPAMIDOL CONTRAST (ORAL USE) VIAL PO PRN (14:31)
--- NOTE | 2020-05-18 16:17 | P.GSHP ---
History of Present Illness H&P Date: 05/18/20 CHIEF COMPLAINT: Fever with urinary retention HISTORY OF PRESENT ILLNESS: The patient is a 74-year-old male who has pre- existing history of urinary retention and is 1 week out following robotic katie tral hernia repair and had no instrumentation or chapin for his bladder during or after surgery. He reports developing constipation. Per his , he has decreased oral intake and low appetite. He pre-existing history of urinary retention prior to surgery and was taking Flomax. Following his surgery, he did follow-up in the office and stated he was urinating well. His main concern included constipation. Several days following his office visit, he did go to his local emergency room and was found to have moderate urinary retention that was drained. He then presented to this ER with new fevers and recurrent urinary retention. 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 He also has known history of bilateral inguinal hernias. He comes in with new lower abdominal pain. PAST MEDICAL HISTORY: Please see list and reviewed PAST SURGICAL HISTORY: Please see list and reviewed MEDICATIONS: Please see list and reviewed ALLERGIES: Please see list and reviewed SOCIAL HISTORY: Please see list and reviewed FAMILY HISTORY: Please see list and reviewed REVIEW OF ORGAN SYSTEMS: CONSTITUTIONAL: No fevers or chills. No recent weight loss. EYES: Denies any trouble with vision. Wears glasses. HEENT: No difficulties with hearing. No nosebleeds. No difficulty swallowing. RESPIRATORY: Denies pneumonia. Denies any troubles with breathing or dyspnea on exertion. CARDIOVASCULAR: Past chest pain, palpitations, or recent heart attacks. Has hypertensive heart disease. GASTROINTESTINAL: Denies fatty food intolerance. Has change in bowel habits and gas bloat. Has gastroesophageal reflux disease. GENITOURINARY: Has moderate urinary retention NEUROLOGICAL: Denies any numbness or tingling along the distal extremities. No seizure disorders or headaches. MUSCULOSKELETAL: Denies any back pain, stiffness or joint arthritis. SKIN: No current skin cancer. No rash. PSYCHIATRIC: Denies current depression or suicidal thoughts. ENDOCRINE: Denies current thyroid disorders. Denies any blood sugar glucose intolerance. HEME/LYMPHATIC: Denies any lumps and bumps around the neck. No recent deep venous thrombosis. ALLERGY/IMMUNOLOGY: No immunoglobulin therapy. No immune deficiencies. BREAST: No current breast lumps, pain or nipple discharge. PHYSICAL EXAM: VITAL SIGNS: Stable GENERAL: Well-developed pleasant male in no acute distress. HEENT: No scleral icterus. Extraocular movements grossly intact. Moist buccal mucosa. NECK: Supple without lymphadenopathy. CHEST: Unlabored respirations. Equal bilateral excursions. CARDIOVASCULAR: Regular rate and rhythm. Distal 2+ pulses. ABDOMEN: No peritonitis. No recurrent incisional hernia. MUSCULOSKELETAL: No clubbing, cyanosis, or edema. PSYCH: appropriate affect. Alert and oriented person place and time. SKIN: Good skin turgor. Well perfused. NEURO: No focal or lateralizing signs. LABS: reviewed. WBC within normal limits. Sodium low at 132. Urinalysis shows positive leukocyte esterase trace, nitrites, STUDIES: Chest x-ray independent review demonstrating no acute pulmonary process . No pleural effusions. Additionally small bowel dilation questionable for ileus. This is my independent interpretation. EKG: reviewed with sinus rhythm with premature ventricular contractions change from prior EKG 2 weeks ago. ASSESSMENT: 1. Recurrent urinary retention 2. Ileus 3. Hyponatremia 4. Urinalysis with leukocyte esterase and nitrates consistent with UTI PLAN: 1. Rrecommend admission for ileus and urinary tract infection with abdominal pain 2. Urology consultation for recurrent urinary retention 3. Place chapin 4. CT of the abdomen and pelvis for history of large bowel obstruction including inguinal hernias and ileus Past Medical History Past Medical History: Cancer, CVA/TIA, GERD/Reflux Additional Past Medical History / Comment(s): TIA's-no residual effects, barretts esophagus, hx skin cancer History of Any Multi-Drug Resistant Organisms: None Reported Past Surgical History: Bowel Resection, Hernia Repair, Orthopedic Surgery Additional Past Surgical History / Comment(s): Colonoscopy with perforation and emergency surgery to repair 2017. Rt shoulder fracture with surgery. bowel resection 2019 to remove 12" colon for twisted bowel, Past Anesthesia/Blood Transfusion Reactions: No Reported Reaction Past Psychological History: No Psychological Hx Reported Smoking Status: Former smoker Past Alcohol Use History: None Reported Past Drug Use History: None Reported - Past Family History Mother Family Medical History: Renal Disease Additional Family Medical History / Comment(s): polycystic kidney disease Father Family Medical History: Myocardial Infarction ([place]) Additional Family Medical History / Comment(s): Father at the age of 80yrs from probable [place]. Son(s) Family Medical History: Cancer Medications and Allergies Home Medications Medication Instructions Recorded Confirmed Type Aspirin 325 mg PO DAILY 01/13/17 05/18/20 History Omeprazole 40 mg PO DAILY #90 capsule. 01/14/17 05/18/20 Rx Fish Oil/Dha/Epa [Fish Oil 1,200 1 cap PO DAILY 02/10/19 05/18/20 History mg Fish Oil] Ibuprofen [Motrin] 600 mg PO Q8HR PRN #30 tab 05/10/20 05/18/20 Rx Naproxen Sodium [Aleve] 220 mg PO DAILY PRN 05/18/20 05/18/20 History Allergies Allergy/AdvReac Type Severity Reaction Status Date / Time No Known Allergies Allergy Verified 05/18/20 13:00 Surgical - Exam Vital Signs Temp Pulse Resp BP Pulse Ox 98.6 F 99 18 129/79 98 05/18/20 12:05 05/18/20 12:05 05/18/20 12:05 05/18/20 12:05 05/18/20 12:05 Results - Labs 05/18/20 12:46 05/18/20 12:46 Abnormal Lab Results - Last 24 Hours (Table) 05/18/20 05/18/20 05/18/20 Range/Units 12:46 12:46 14:14 RDW 17.7 H (11.5-15.5) % Plt Count 146 L (150-450) k/uL Neutrophils # 9.3 H (1.3-7.7) k/uL Lymphocytes # 0.4 L (1.0-4.8) k/uL Sodium 132 L (137-145) mmol/L Carbon Dioxide 21 L (22-30) mmol/L Glucose 111 H (74-99) mg/dL Calcium 8.3 L (8.4-10.2) mg/dL Total Bilirubin 2.2 H (0.2-1.3) mg/dL C-Reactive Protein 87.0 H (<10.0) mg/L Urine Protein Trace H (Negative) Urine Ketones 1+ H (Negative) Urine Blood Moderate H (Negative) Ur Leukocyte Esterase Moderate H (Negative) Urine WBC 33 H (0-5) /hpf Urine Bacteria Many H (None) /hpf Urine Mucus Many H (None) /hpf Diabetes panel 05/18/20 Range/Units 12:46 Sodium 132 L (137-145) mmol/L Potassium 3.8 (3.5-5.1) mmol/L Chloride 100 (98-107) mmol/L Carbon Dioxide 21 L (22-30) mmol/L BUN 18 (9-20) mg/dL Creatinine 0.83 (0.66-1.25) mg/dL Glucose 111 H (74-99) mg/dL Calcium 8.3 L (8.4-10.2) mg/dL AST 36 (17-59) U/L ALT 29 (4-49) U/L Alkaline Phosphatase 72 (38-126) U/L Total Protein 6.6 (6.3-8.2) g/dL Albumin 3.9 (3.5-5.0) g/dL Calcium panel 05/18/20 Range/Units 12:46 Calcium 8.3 L (8.4-10.2) mg/dL Albumin 3.9 (3.5-5.0) g/dL Pituitary panel 05/18/20 Range/Units 12:46 Sodium 132 L (137-145) mmol/L Potassium 3.8 (3.5-5.1) mmol/L Chloride 100 (98-107) mmol/L Carbon Dioxide 21 L (22-30) mmol/L BUN 18 (9-20) mg/dL Creatinine 0.83 (0.66-1.25) mg/dL Glucose 111 H (74-99) mg/dL Calcium 8.3 L (8.4-10.2) mg/dL Adrenal panel 05/18/20 Range/Units 12:46 Sodium 132 L (137-145) mmol/L Potassium 3.8 (3.5-5.1) mmol/L Chloride 100 (98-107) mmol/L Carbon Dioxide 21 L (22-30) mmol/L BUN 18 (9-20) mg/dL Creatinine 0.83 (0.66-1.25) mg/dL Glucose 111 H (74-99) mg/dL Calcium 8.3 L (8.4-10.2) mg/dL Total Bilirubin 2.2 H (0.2-1.3) mg/dL AST 36 (17-59) U/L ALT 29 (4-49) U/L Alkaline Phosphatase 72 (38-126) U/L Total Protein 6.6 (6.3-8.2) g/dL Albumin 3.9 (3.5-5.0) g/dL Assessment and Plan (1) Ileus Current Visit: Yes Status: Acute Code(s): K56.7 - ILEUS, UNSPECIFIED SNOMED Code(s): 532846828 (2) Hyponatremia Current Visit: Yes Status: Acute Code(s): E87.1 - HYPO-OSMOLALITY AND HYPONATREMIA SNOMED Code(s): 80934284 (3) Urinary retention with incomplete bladder emptying Current Visit: Yes Status: Acute Code(s): R33.9 - RETENTION OF URINE, UNSPECIFIED SNOMED Code(s): 672714687 (4) Fever Current Visit: Yes Status: Acute Code(s): R50.9 - FEVER, UNSPECIFIED SNOMED Code(s): 330503733 (5) UTI (urinary tract infection) Current Visit: Yes Status: Acute Code(s): N39.0 - URINARY TRACT INFECTION, SITE NOT SPECIFIED SNOMED Code(s): 74423909
[2020-05-18] MEDS: SODIUM CHLORIDE 0.9% 1,000 ML IV SCH ×2 (16:32→19:10)
--- NOTE | 2020-05-18 18:17 | CT ---
EXAMINATION TYPE: CT abdomen pelvis w con DATE OF EXAM: 05/18/2020 COMPARISON: 04/30/2020. HISTORY: Abdominal pain post hernia repair. Difficulty empyting bladder. CT DLP: 1251.1 mGycm Automated exposure control for dose reduction was used. TECHNIQUE: Helical acquisition of images was performed from the lung bases through the pelvis. CONTRAST: Performed with Oral Contrast and with IV Contrast, patient injected with 100 mL of Isovue 300. FINDINGS: LUNG BASES: Minimal atelectasis. LIVER/GB: No significant abnormality is appreciated. PANCREAS: No significant abnormality is seen. SPLEEN: No significant abnormality is seen. ADRENALS: No significant abnormality is seen. KIDNEYS: No hydronephrosis or nephrolithiasis. Stable left renal pelvic ectasia versus parapelvic cys t. FREE AIR: No free air is visualized. RETROPERITONEAL ADENOPATHY: None visualized REPRODUCTIVE ORGANS: No significant abnormality is seen URINARY BLADDER: Mildly distended urinary bladder without wall thickening. PELVIC ADENOPATHY: None visualized. OSSEOUS STRUCTURES: No significant abnormality is seen. BOWEL: Interval postsurgical changes related to repair of periumbilical hernia without residual christiana ia seen. There is small amount of fluid within the overlying subcutaneous soft tissues at the surgica l site. Multiple mildly dilated bowel loops throughout the abdomen. Oral contrast is seen to the leve l of the distal small bowel loops. Trace amount of air is seen within the right inguinal canal. No si gnificant free fluid. Prior post surgical changes involving the right colon. Small bilateral fat-cont aining inguinal hernias. OTHER: Small left rectus sheath hematoma is seen. IMPRESSION: STATUS POST PERIUMBILICAL HERNIA REPAIR. MULTIPLE MILDLY DILATED BOWEL LOOPS, FAVORS POSTOPERATIVE ILEUS. SMALL LEFT RECTUS SHEATH HEMATOMA. ATTENTION ON FOLLOW-UP. MILDLY DILATED URINARY BLADDER. NONSPECIFIC TRACE AMOUNT OF AIR WITHIN THE RIGHT INGUINAL CANAL, MAY RELATE TO POSTSURGICAL CHANGES.
[2020-05-18] MEDS ORDERED: SODIUM CHLORIDE 0.9% 1,000 ML IV ONE (19:06)
[2020-05-19] MEDS: SODIUM CHLORIDE 0.9% 1,000 ML IV SCH ×2 (00:40→11:25)
[2020-05-19 09:01] LABS: Basophils # (A) 0.05 X 10*3/uL (0.00-0.10); Basophils % (A) 0.7 %; Eosinophils # (A) 0.13 X 10*3/uL (0.04-0.35); Eosinophils % (A) 1.9 %; HCT 32.7 % (39.6-50.0); HGB 10.7 g/dL (13.0-17.0); Lymphocytes % (A) 14.4 %; MCH 32.5 pg (27.0-32.0); MCHC 32.7 g/dL (32.0-37.0); MCV 99.4 fL (80.0-97.0); Mean Platelet Volume 9.8 fL (9.5-12.2); Monocytes # (A) 0.77 X 10*3/uL (0.20-1.00); Monocytes % (A) 11.1 %; Neutrophils # (A) 4.93 X 10*3/uL (1.80-7.70); Neutrophils % (A) 70.9 %; Platelet Count 123 X 10*3/uL (140-440); RBC 3.29 X 10*6/uL (4.40-5.60); RDW 16.3 % (11.5-14.5); WBC 6.95 X 10*3/uL (4.50-10.00)
[2020-05-19 09:17] LABS: African American GFR (CKD) 100.6 (60.0-200.0); Albumin/Globulin Ratio 2.14 (1.60-3.17); Anion Gap 3.4 mmol/L (4.00-12.00); BUN/Creat Ratio 18.75 Ratio (12.00-20.00); Calcium 7.2 mg/dL (8.7-10.3); Carbon Dioxide 23.6 mmol/L (21.6-31.8); Globulin 1.4 g/dL (1.6-3.3); Magnesium 1.9 mg/dL (1.5-2.4); Non-African American GFR(CKD) 86.8 (60.0-200.0); Phosphorus 2.3 mg/dL (2.4-5.1); Potassium 4.4 mmol/L (3.5-5.5); Total Bilirubin 0.4 mg/dL (0.2-1.2); Total Protein 4.4 g/dL (6.2-8.2)
--- NOTE | 2020-05-19 12:55 | P.PN ---
Subjective Progress Note Date: 05/19/20 CHIEF COMPLAINT: Fever with urinary retention HISTORY OF PRESENT ILLNESS: The patient is a 74-year-old male who has pre- existing history of urinary retention and is 1 week out following robotic ventral hernia repair and had no instrumentation or chapin for his bladder during or after surgery. He had urinary retention recently and with placement of chapin, he is feeling better. REVIEW OF ORGAN SYSTEMS: PHYSICAL EXAM: VITAL SIGNS: Stable GENERAL: Well-developed pleasant male in no acute distress. HEENT: No scleral icterus. Extraocular movements grossly intact. Moist buccal mucosa. NECK: Supple without lymphadenopathy. CHEST: Unlabored respirations. Equal bilateral excursions. CARDIOVASCULAR: Regular rate and rhythm. Distal 2+ pulses. ABDOMEN: No peritonitis. No recurrent incisional hernia. MUSCULOSKELETAL: No clubbing, cyanosis, or edema. PSYCH: appropriate affect. Alert and oriented person place and time. SKIN: Good skin turgor. Well perfused. NEURO: No focal or lateralizing signs. STUDIES: CT of the abdomen and pelvis in the perioperative reviewed demonstrating bilateral inguinal hernias. Postsurgical changes of the abdominal wall. No recurrent ventral hernia. Presence of gallstones. Diverticulosis. This is my independent interpretation. ASSESSMENT: 1. Recurrent urinary retention 2. Ileus 3. Hyponatremia 4. Urinalysis with leukocyte esterase and nitrates consistent with UTI PLAN: 1. He is doing well and feels better. 2. Follow-up with urology if cleared for outpatient management 3. Stable for discharge Objective - Vital Signs Vital signs: Vital Signs Temp 99.3 F 05/19/20 11:27 Pulse 55 L 05/19/20 11:27 Resp 17 05/19/20 11:27 BP 90/52 05/19/20 11:27 Pulse Ox 98 05/19/20 11:27 Intake & Output 05/18/20 05/19/20 05/19/20 18:59 06:59 18:59 Output Total 425 Balance -425 Weight 92.533 kg Output: Urine 425 - Labs CBC & Chem 7: 05/19/20 05:49 05/19/20 05:49 Labs: Abnormal Lab Results - Last 24 Hours (Table) 05/18/20 05/18/20 05/18/20 Range/Units 12:46 12:46 12:46 RBC (4.40-5.60) X 10*6/uL Hgb (13.0-17.0) g/dL Hct (39.6-50.0) % MCV (80.0-97.0) fL MCH (27.0-32.0) pg RDW 17.7 H (11.5-15.5) % Plt Count 146 L (150-450) k/uL Immature Gran # (0.00-0.04) X 10*3/uL Neutrophils # 9.3 H (1.3-7.7) k/uL Lymphocytes # 0.4 L (1.0-4.8) k/uL Sodium 132 L (137-145) mmol/L Carbon Dioxide 21 L (22-30) mmol/L Anion Gap (4.00-12.00) mmol/L Glucose 111 H (74-99) mg/dL Calcium 8.3 L (8.4-10.2) mg/dL Phosphorus (2.4-5.1) mg/dL Total Bilirubin 2.2 H (0.2-1.3) mg/dL C-Reactive Protein 87.0 H (<10.0) mg/L Total Protein (6.2-8.2) g/dL Albumin (3.80-4.90) g/dL Globulin (1.6-3.3) g/dL Procalcitonin 1.76 H (0.02-0.09) ng/mL Urine Protein (Negative) Urine Ketones (Negative) Urine Blood (Negative) Ur Leukocyte Esterase (Negative) Urine WBC (0-5) /hpf Urine Bacteria (None) /hpf Urine Mucus (None) /hpf 05/18/20 05/19/20 05/19/20 Range/Units 14:14 05:49 05:49 RBC 3.29 L (4.40-5.60) X 10*6/uL Hgb 10.7 L (13.0-17.0) g/dL Hct 32.7 L (39.6-50.0) % MCV 99.4 H (80.0-97.0) fL MCH 32.5 H (27.0-32.0) pg RDW 16.3 H (11.5-15.5) % Plt Count 123 L (150-450) k/uL Immature Gran # 0.07 H (0.00-0.04) X 10*3/uL Neutrophils # (1.3-7.7) k/uL Lymphocytes # (1.0-4.8) k/uL Sodium 134 L (137-145) mmol/L Carbon Dioxide (22-30) mmol/L Anion Gap 3.40 L (4.00-12.00) mmol/L Glucose (74-99) mg/dL Calcium 7.2 L (8.4-10.2) mg/dL Phosphorus 2.3 L (2.4-5.1) mg/dL Total Bilirubin (0.2-1.3) mg/dL C-Reactive Protein (<10.0) mg/L Total Protein 4.4 L (6.2-8.2) g/dL Albumin 3.00 L (3.80-4.90) g/dL Globulin 1.4 L (1.6-3.3) g/dL Procalcitonin (0.02-0.09) ng/mL Urine Protein Trace H (Negative) Urine Ketones 1+ H (Negative) Urine Blood Moderate H (Negative) Ur Leukocyte Esterase Moderate H (Negative) Urine WBC 33 H (0-5) /hpf Urine Bacteria Many H (None) /hpf Urine Mucus Many H (None) /hpf Microbiology - Last 24 Hours (Table) 05/18/20 14:14 Urine Culture - Preliminary Urine,Catheterized Assessment and Plan (1) Ileus Current Visit: Yes Status: Acute Code(s): K56.7 - ILEUS, UNSPECIFIED SNOMED Code(s): 567502744 (2) Hyponatremia Current Visit: Yes Status: Acute Code(s): E87.1 - HYPO-OSMOLALITY AND HYPONATREMIA SNOMED Code(s): 04614314 (3) Urinary retention with incomplete bladder emptying Current Visit: Yes Status: Acute Code(s): R33.9 - RETENTION OF URINE, UN SPECIFIED SNOMED Code(s): 299101926 (4) Fever Current Visit: Yes Status: Acute Code(s): R50.9 - FEVER, UNSPECIFIED SNOMED Code(s): 608806910 (5) UTI (urinary tract infection) Current Visit: Yes Status: Acute Code(s): N39.0 - URINARY TRACT INFECTION, SITE NOT SPECIFIED SNOMED Code(s): 93932110
--- NOTE | 2020-05-19 13:49 | P.GSCN ---
History of Present Illness Consult date: 05/19/20 Reason for Consult: Urinary retention Requesting physician: Taryn Aranda History of present illness: The patient is a 74-year-old white male with a history of postoperative urinary retention. He underwent a robotic-assisted laparoscopic repair of an incarcerated left ventral hernia on 05/10/2020. Given his history of postoperative urinary retention, he was placed on tamsulosin preoperatively. He has experienced constipation recently. He was seen and in the emergency room several days ago and catheterized, removing 1300 mL of urine from his bladder. He was admitted yesterday, and 800 mL was obtained upon Conroy catheter insertion. The catheter remains in place and is draining clear yellow urine. Review of Systems - Constitutional Reports fever - Gastrointestinal Reports constipation - Genitourinary Reports as per HPI Past Medical History Past Medical History: Cancer, CVA/TIA, GERD/Reflux Additional Past Medical History / Comment(s): TIA's-no residual effects, barretts esophagus, hx skin cancer History of Any Multi-Drug Resistant Organisms: None Reported Past Surgical History: Bowel Resection, Hernia Repair, Orthopedic Surgery Additional Past Surgical History / Comment(s): Colonoscopy with perforation and emergency surgery to repair 2017. Rt shoulder fracture with surgery. bowel resection 2019 to remove 12" colon for twisted bowel, Past Anesthesia/Blood Transfusion Reactions: No Reported Reaction Past Psychological History: No Psychological Hx Reported Smoking Status: Former smoker Past Alcohol Use History: None Reported Past Drug Use History: None Reported - Past Family History Mother Family Medical History: Renal Disease Additional Family Medical History / Comment(s): polycystic kidney disease Father Family Medical History: Myocardial Infarction ([place]) Additional Family Medical History / Comment(s): Father at the age of 80yrs from probable [place]. Son(s) Family Medical History: Cancer Medications and Allergies Home Medications Medication Instructions Recorded Confirmed Type Aspirin 325 mg PO DAILY 01/13/17 05/18/20 History Omeprazole 40 mg PO DAILY #90 capsule. 01/14/17 05/18/20 Rx Fish Oil/Dha/Epa [Fish Oil 1,200 1 cap PO DAILY 02/10/19 05/18/20 History mg Fish Oil] Ibuprofen [Motrin] 600 mg PO Q8HR PRN #30 tab 05/10/20 05/18/20 Rx Naproxen Sodium [Aleve] 220 mg PO DAILY PRN 05/18/20 05/18/20 History Allergies Allergy/AdvReac Type Severity Reaction Status Date / Time No Known Allergies Allergy Verified 05/18/20 13:00 Surgical - Exam Vital Signs Temp Pulse Resp BP Pulse Ox 98.6 F 99 18 129/79 98 05/18/20 12:05 05/18/20 12:05 05/18/20 12:05 05/18/20 12:05 05/18/20 12:05 - General well developed, well nourished, no distress - Respiratory normal respiratory effort - Abdomen Abdomen: soft, non tender, no guarding, no rigid, no rebound - Genitourinary normal penis with no external lesions, testicles non-tender - Rectum Rectum: normal sphincter tone, no masses, other (Prostate moderately enlarged b ut smooth (unable to palpate base)) - Psychiatric oriented to time, oriented to person, oriented to place, speech is normal, memory intact Results - Labs 05/19/20 05:49 05/19/20 05:49 Abnormal Lab Results - Last 24 Hours (Table) 05/18/20 05/18/20 05/19/20 Range/Units 12:46 14:14 05:49 RBC 3.29 L (4.40-5.60) X 10*6/uL Hgb 10.7 L (13.0-17.0) g/dL Hct 32.7 L (39.6-50.0) % MCV 99.4 H (80.0-97.0) fL MCH 32.5 H (27.0-32.0) pg RDW 16.3 H (11.5-14.5) % Plt Count 123 L (140-440) X 10*3/uL Immature Gran # 0.07 H (0.00-0.04) X 10*3/uL Sodium (135-145) mmol/L Anion Gap (4.00-12.00) mmol/L Calcium (8.7-10.3) mg/dL Phosphorus (2.4-5.1) mg/dL Total Protein (6.2-8.2) g/dL Albumin (3.80-4.90) g/dL Globulin (1.6-3.3) g/dL Procalcitonin 1.76 H (0.02-0.09) ng/mL Urine Protein Trace H (Negative) Urine Ketones 1+ H (Negative) Urine Blood Moderate H (Negative) Ur Leukocyte Esterase Moderate H (Negative) Urine WBC 33 H (0-5) /hpf Urine Bacteria Many H (None) /hpf Urine Mucus Many H (None) /hpf 05/19/20 Range/Units 05:49 RBC (4.40-5.60) X 10*6/uL Hgb (13.0-17.0) g/dL Hct (39.6-50.0) % MCV (80.0-97.0) fL MCH (27.0-32.0) pg RDW (11.5-14.5) % Plt Count (140-440) X 10*3/uL Immature Gran # (0.00-0.04) X 10*3/uL Sodium 134 L (135-145) mmol/L Anion Gap 3.40 L (4.00-12.00) mmol/L Calcium 7.2 L (8.7-10.3) mg/dL Phosphorus 2.3 L (2.4-5.1) mg/dL Total Protein 4.4 L (6.2-8.2) g/dL Albumin 3.00 L (3.80-4.90) g/dL Globulin 1.4 L (1.6-3.3) g/dL Procalcitonin (0.02-0.09) ng/mL Urine Protein (Negative) Urine Ketones (Negative) Urine Blood (Negative) Ur Leukocyte Esterase (Negative) Urine WBC (0-5) /hpf Urine Bacteria (None) /hpf Urine Mucus (None) /hpf Microbiology - Last 24 Hours (Table) 05/18/20 14:14 Urine Culture - Preliminary Urine,Catheterized Diabetes panel 05/19/20 Range/Units 05:49 Sodium 134 L (135-145) mmol/L Potassium 4.4 (3.5-5.5) mmol/L Chloride 107 (96-109) mmol/L Carbon Dioxide 23.6 (21.6-31.8) mmol/L BUN 15.0 (9.0-27.0) mg/dL Creatinine 0.8 (0.6-1.5) mg/dL Glucose 84 (70-110) mg/dL Calcium 7.2 L (8.7-10.3) mg/dL AST 18 (14-35) U/L ALT 20 (10-49) U/L Alkaline Phosphatase 44 (41-126) U/L Total Protein 4.4 L (6.2-8.2) g/dL Albumin 3.00 L (3.80-4.90) g/dL Calcium panel 05/19/20 Range/Units 05:49 Calcium 7.2 L (8.7-10.3) mg/dL Phosphorus 2.3 L (2.4-5.1) mg/dL Albumin 3.00 L (3.80-4.90) g/dL Pituitary panel 05/19/20 Range/Units 05:49 Sodium 134 L (135-145) mmol/L Potassium 4.4 (3.5-5.5) mmol/L Chloride 107 (96-109) mmol/L Carbon Dioxide 23.6 (21.6-31.8) mmol/L BUN 15.0 (9.0-27.0) mg/dL Creatinine 0.8 (0.6-1.5) mg/dL Glucose 84 (70-110) mg/dL Calcium 7.2 L (8.7-10.3) mg/dL Adrenal panel 05/19/20 Range/Units 05:49 Sodium 134 L (135-145) mmol/L Potassium 4.4 (3.5-5.5) mmol/L Chloride 107 (96-109) mmol/L Carbon Dioxide 23.6 (21.6-31.8) mmol/L BUN 15.0 (9.0-27.0) mg/dL Creatinine 0.8 (0.6-1.5) mg/dL Glucose 84 (70-110) mg/dL Calcium 7.2 L (8.7-10.3) mg/dL Total Bilirubin 0.4 (0.2-1.2) mg/dL AST 18 (14-35) U/L ALT 20 (10-49) U/L Alkaline Phosphatase 44 (41-126) U/L Total Protein 4.4 L (6.2-8.2) g/dL Albumin 3.00 L (3.80-4.90) g/dL Assessment and Plan (1) Urinary retention Current Visit: Yes Status: Acute Code(s): R33.9 - RETENTION OF URINE, UNSPECIFIED SNOMED Code(s): 553885977 Plan: I had a lengthy discussion with the patient and his regarding his urinary retention. I explained to him that bladder overdistention can result in diminished detrusor function, and I have thus suggested that the catheter remain in place for several days. He is to be discharged home with the Conroy catheter, and continue taking tamsulosin. He was instructed to remove his catheter early in the morning May 23, and see me in the office later that day for evaluation. Please notify me if I can be of any further assistance. Time with Patient: Greater than 30
[2020-05-19 16:33] VITALS: BP 142/72; PULSE 74; RESP 17; TEMP 98.7
== END 2020-05-19 14:25 | disposition home or self-care (01) ==
LOC: EC 12:01 → 6NMEDSUR 14:12
PROVIDERS: ADMIT Surgery Plastic and Reconstructive Surgery; ATTEND Surgery Plastic and Reconstructive Surgery
DX: K56.7 Ileus, unspecified (principal); N39.0 Urinary tract infection, site not specified; R50.82 Postprocedural fever; E86.0 Dehydration; E87.1 Hypo-osmolality and hyponatremia; R11.2 Nausea with vomiting, unspecified; R19.7 Diarrhea, unspecified; K21.9 Gastro-esophageal reflux disease without esophagitis; K22.70 Barrett's esophagus without dysplasia; Z20.822 Contact with and (suspected) exposure to COVID-19; Z79.82 Long term (current) use of aspirin; Z79.1 Long term (current) use of non-steroidal anti-inflammatories (NSAID); Z86.73 Personal history of transient ischemic attack (TIA), and cerebral infarction without residual deficits; Z85.828 Personal history of other malignant neoplasm of skin; Z90.49 Acquired absence of other specified parts of digestive tract; Z87.891 Personal history of nicotine dependence; Z82.49 Family history of ischemic heart disease and other diseases of the circulatory system; Z80.9 Family history of malignant neoplasm, unspecified; Z82.71 Family history of polycystic kidney
CPT/HCPCS: 96365; 96366 ×2; 96361; 96375; 99285; 51702; 36415; 93005; 80053 ×2; 83605; 83615; 83735 ×2; 84100; 85025 ×2; 85610; 85730; 86140; 81001; 87040; 87086; 87077; 87186; 84145; 87635; 71046; 74177; G0378 ×2; J2405; J0696 ×3; J1885; Q9967 ×2; 51701

== ENCOUNTER 2020-12-26 11:28 | Observation (INO) | payer MEDICARE ==
[~2020-12-26 11:28] MED LIST changes: -ACETAMINOPHEN TAB 500 MG TAB PO PRN; +DEXAMETHASONE SOD PHOSPHATE 4 MG/ML 1 ML VIAL IV ONE; -GABAPENTIN 300 MG CAP PO PRN; -HEPARIN SODIUM,PORCINE 5,000 UNIT/ML 1 ML VIAL SQ PRN; +HEPARIN SODIUM,PORCINE/PF 5,000 UNIT/0.5 ML SYRINGE SQ PRN; +HYDROmorphone 0.5 MG/0.5 ML SYRINGE IVP PRN; +LACTATED RINGERS 1,000 ML IV SCH; -MELOXICAM 7.5 MG TAB PO PRN; +MIDAZOLAM 2 MG/2 ML VIAL IV PRN; +ONDANSETRON 4 MG/2 ML VIAL IVP ONE; -TAMSULOSIN 0.4 MG CAP.ER.24H PO PRN
[2020-12-26] MEDS ORDERED: ACETAMINOPHEN TAB 500 MG TAB PO STA (12:06)
[2020-12-26] MEDS ORDERED: TAMSULOSIN 0.4 MG CAP.ER.24H PO STA (12:06)
--- NOTE | 2020-12-26 12:11 | P.GSHP ---
History of Present Illness H&P Date: 12/26/20 CHIEF COMPLAINT: Inguinal hernia, bilateral and incisinal hernia HISTORY OF PRESENT ILLNESS: The patient is a 75-year-old male who presents with a history of both groin swelling and pain for over 3 months. Additionally, patient has prior history of abdominal wall surgery and comes in with incisional hernia upper abdomen. He has pre-existing history of obstructive uropathy with known postop urinary retention. He presents today for repair of bilateral inguinal hernias and incisional hernia repair which she is high risk for urinary retention. PAST MEDICAL HISTORY: Please see list. PAST SURGICAL HISTORY: Please see list. MEDICATIONS: Please see list. ALLERGIES: Please see list. SOCIAL HISTORY: No illicit drug use FAMILY HISTORY: No reports of Crohn disease or ulcerative colitis. REVIEW OF ORGAN SYSTEMS: CONSTITUTIONAL: No fevers or chills. No recent weight loss. EYES: Denies any trouble with vision. Wears glasses. HEENT: No difficulties with hearing. No nosebleeds. No difficulty swallowing. RESPIRATORY: Denies pneumonia. Denies any troubles with breathing or dyspnea on exertion. CARDIOVASCULAR: Denies any chest pain, palpitations, or recent heart attacks. GASTROINTESTINAL: Denies fatty food intolerance. Denies change in bowel habits and gas bloat. GENITOURINARY: Has obstructive uropathy NEUROLOGICAL: Denies any numbness or tingling along the distal extremities. No seizure disorders or headaches. MUSCULOSKELETAL: Has back pain, stiffness or joint arthritis. SKIN: No current skin cancer. No rash. PSYCHIATRIC: Denies current depression or suicidal thoughts. ENDOCRINE: Denies current thyroid disorders. Denies any blood sugar glucose intolerance. HEME/LYMPHATIC: Denies any lumps and bumps around the neck. No recent deep venous thrombosis. ALLERGY/IMMUNOLOGY: No immunoglobulin therapy. No immune deficiencies. BREAST: Denies current breast lumps, pain or nipple discharge. PHYSICAL EXAM: VITALS: Reviewed CONSTITUTIONAL: Well developed and in no acute distress. EYES: Conjuctivae without sclera icterus. Extraocular movements grossly intact. HEAD, EARS, NOSE, THROAT: Moist buccal mucosa. Head is atraumatic, normocephalic. Hears conversational speech. No nasal drainage. NECK: Supple. No JV distention. No thyroidomegaly. RESPIRATORY: Non-labored respirations and equal bilateral excursions. No gross wheezes. CARDIOVASCULAR: Regular rate and rhythm. Extremities without moderate edema. Palpable 2+ radial pulses. ABDOMEN: Swelling bilateral groin and epigastrium for hernias. LYMPH: No neck lymphadenopathy. MUSCULOSKELETAL: Nail and fingers with good capillary refill. SKIN: Warm and well perfused with good skin turgor. NEUROLOGIC: Cranial nerves II through XII grossly intact. Sensation upper and extremities intact. No focal or lateralizing signs. PSYCH: Appropriate affect. Alert and oriented to person, place and time. Displays appropriate insight. ASSESSMENT: 1. Inguinal hernia, bilateral 2. Epigastric incisional hernia 3. Obstructive uropathy PLAN: 1. Recommend proceeding with a robotic inguinal repair with mesh with bilateral approach and ventral hernia repair 2. Benefits and risks of surgical intervention was discussed including possibility of open technique. 3. DVT prophylaxis. 4. Antibiotic prophylaxis. 5. Regional block advised. 6. Patient's pre-existing history of anemia, repeat CBC and CMP 7. Overnight observation and advise for known postoperative urinary retention Past Medical History Past Medical History: Cancer, CVA/TIA, GERD/Reflux Additional Past Medical History / Comment(s): TIA's-no residual effects, barretts esophagus, hx skin cancer. POST OP INFECTION AND IP ADM History of Any Multi-Drug Resistant Organisms: None Reported Past Surgical History: Bowel Resection, Hernia Repair, Orthopedic Surgery Additional Past Surgical History / Comment(s): Colonoscopy with perforation and emergency surgery to repair 2017. Rt shoulder fracture with surgery. bowel resection 2019 to remove 12" colon for twisted bowel. Past Anesthesia/Blood Transfusion Reactions: No Reported Reaction Past Psychological History: No Psychological Hx Reported Additional Psychological History / Comment(s): . Smoking Status: Former smoker Past Alcohol Use History: None Reported Additional Past Alcohol Use History / Comment(s): "causal" smoking up until 35 yrs ago, 3-4 beers daily Past Drug Use History: None Reported - Past Family History Mother Family Medical History: Renal Disease Additional Family Medical History / Comment(s): polycystic kidney disease Father Family Medical History: Myocardial Infarction ([place]) Additional Family Medical History / Comment(s): Father at the age of 80yrs from probable [place]. Son(s) Family Medical History: Cancer Medications and Allergies Home Medications Medication Instructions Recorded Confirmed Type Aspirin 325 mg PO DAILY 01/13/17 12/24/20 History Fish Oil/Dha/Epa [Fish Oil 1,200 1 cap PO DAILY 02/10/19 12/24/20 History mg Fish Oil] Ibuprofen [Motrin] 600 mg PO Q8HR PRN #30 tab 05/10/20 12/24/20 Rx Naproxen Sodium [Aleve] 220 mg PO DAILY PRN 05/18/20 12/24/20 History Cetirizine HCl [Zyrtec] 10 mg PO QAM 12/24/20 12/24/20 History Fluticasone Nasal [place] [Flonase 1 spr NASAL DAILY 12/24/20 12/24/20 History Nasal [place]] Omeprazole 40 mg PO QAM 12/24/20 12/24/20 History Tamsulosin [Flomax] 0.4 mg PO HS 12/24/20 12/24/20 History Allergies Allergy/AdvReac Type Severity Reaction Status Date / Time No Known Allergies Allergy Verified 12/24/20 10:01
[2020-12-26 12:33] LABS: Glucose,Whole Blood 95 mg/dL (75-99)
[2020-12-26 12:45] LABS: Anisocytosis Slight; Basophils # (A) 0.1 k/uL (0-0.2); Basophils % (A) 1 %; Eosinophils # (A) 0.1 k/uL (0-0.7); Eosinophils % (A) 2 %; HCT 44.6 % (39.0-53.0); HGB 15.1 gm/dL (13.0-17.5); Lymphocytes # (A) 1.2 k/uL (1.0-4.8); Lymphocytes % (A) 24 %; MCH 33.6 pg (25.0-35.0); MCHC 33.9 g/dL (31.0-37.0); Macrocytosis Slight; Mean Platelet Volume 7.5; Monocytes # (A) 0.4 k/uL (0-1.0); Monocytes % (A) 7 %; Neutrophils # (A) 3.3 k/uL (1.3-7.7); Neutrophils % (A) 62 %; Platelet Count 185 k/uL (150-450); RDW 17.3 % (11.5-15.5); WBC 5.3 k/uL (3.8-10.6)
[2020-12-26 13:05] LABS: ALT 22 U/L (4-49); African American GFR (CKD) >90 (>60 ml/min/1.73 sqM); Albumin 4.2 g/dL (3.5-5.0); Anion Gap 9 mmol/L; Blood Urea Nitrogen 13 mg/dL (9-20); Calcium 9.1 mg/dL (8.4-10.2); Carbon Dioxide 18 mmol/L (22-30); Chloride 108 mmol/L (98-107); Glucose 101 mg/dL (74-99); Non-African American GFR(CKD) 83 (>60 ml/min/1.73 sqM); Sodium 135 mmol/L (137-145); Total Protein 7.1 g/dL (6.3-8.2)
[2020-12-26 13:08] LABS: AST 40 U/L (17-59); Alkaline Phosphatase 46 U/L (38-126); Potassium 4.7 mmol/L (3.5-5.1)
[2020-12-26] MEDS ORDERED: NEOSTIGMINE 1 MG/ML 10 ML VIAL ONE (15:45)
[2020-12-26] MEDS ORDERED: SUCCINYLCHOLINE CHLORIDE 100 MG/5 ML SYR IV ONE (15:45)
[2020-12-26] MEDS ORDERED: fentaNYL (PF) 50 MCG/ML 2 ML AMP ONE (15:45)
[2020-12-26] MEDS ORDERED: ROCURONIUM 10 MG/ML (5 ML VIAL) IV ONE (15:45)
[2020-12-26] MEDS ORDERED: GLYCOPYRROLATE 0.2 MG/ML 2 ML VIAL ONE (15:45)
[2020-12-26] MEDS ORDERED: PROPOFOL 10 MG/ML 20 ML VIAL IV ONE (15:45)
[2020-12-26] MEDS ORDERED: PHENYLEPHRINE-0.9% NACL SYG 1,000 MCG/10 ML SYRINGE ONE (15:45)
[2020-12-26] MEDS ORDERED: BUPIVACAINE (PF) 0.25% 30 ML VIAL SQ ONE ×2 (16:16→16:24)
[2020-12-26] MEDS ORDERED: LACTATED RINGERS 1,000 ML IV ONE (18:55)
[2020-12-26] MEDS ORDERED: NALOXONE 0.4 MG/ML 1 ML VIAL IV PRN (19:29)
[2020-12-26] MEDS ORDERED: KETOROLAC 15 MG/ML 1 ML VIAL IVP PRN (19:29)
[2020-12-26] MEDS ORDERED: ONDANSETRON 4 MG/2 ML VIAL IVP PRN (19:29)
[2020-12-26] MEDS ORDERED: HYDROmorphone 1 MG/ML 1 ML SYRINGE IVP PRN (19:31)
--- NOTE | 2020-12-26 19:34 | P.OP ---
Date of Procedure: 12/26/20 Estimated Blood Loss (ml): 10 Description of Procedure: SURGEON: KRZYSZTOF CARRASCO MD PREOPERATIVE DIAGNOSES: 1. Recurrent incarcerated left inguinal hernia with incarceration 2. Initial right inguinal hernia with incarceration 3. Recurrent incisional ventral hernia 4. 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 Obesity due to excess calories, BMI 30.1 6. Gastroesophageal reflux disease POSTOPERATIVE DIAGNOSES: 1. Recurrent incarcerated left inguinal hernia 2. Initial right inguinal hernia 3. Recurrent incisional ventral hernia with incarceration 4. 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 Obesity due to excess calories, BMI 30.1 6. Gastroesophageal reflux disease 7. Peritoneal adhesions 8. Left inguinal lipoma 9. Right inguinal lipoma OPERATION: 1. Robotic-assisted da [place]ales Xi laparoscopic lysis of adhesions over 30 minutes 2. Robotic-assisted da [place] Xi laparoscopic reduction repair of recurrent incarcerated left indirect, direct, inguinal hernia with mesh, 15.[address] 3. Robotic-assisted da [place] Xi laparoscopic reduction repair of initial incarcerated right indirect inguinal hernia with mesh, 11.[address] 4. Robotic-assisted da [place] Xi laparoscopic reduction repair of recurrent incarcerated incisional ventral hernia, 15.[address] mesh 5. Excision of left inguinal lipoma 4 x 4 cm, subfascial 6. Excision of right inguinal lipoma 4 x 5 cm, subfascial 7. Excision of foreign body, left inguinal mesh IMPLANTS: 1. Ventralight ST Mesh LOT#[id number] REF [id number] 1. Ventralight ST Mesh LOT#[id number] REF [id number] ANESTHESIA: General with local anesthetic ESTIMATED BLOOD LOSS: 5 mL. SPECIMENS: 1. Incarcerated left inguinal hernia sac, foreign body, lipoma, contents 2. Incarcerated right inguinal hernia lipoma 3. Incarcerated incisional hernia contents COMPLICATIONS: None. FINDINGS: 1. Incarcerated left inguinal hernia 5 x 4 cm, Nyhus IV with foreign debris, lipoma, failed mesh at the inferior portion completely excised prior mesh repair, including 3 hernias, intraperitoneal repair 2. Incarcerated right inguinal hernia over 3 x 3 cm, Nyhus IIIb with a weak posterior floor, intraperitoneal repair 3. Incarcerated recurrent incisional hernia malagasy cheese defect, 8 hernias, 4 x 4 cm repaired primarily including with mesh, intraperitoneal repair INDICATIONS: The patient is a 75-year-old male who presents with bilateral inguinal hernias with previous left inguinal hernia repair including incisional hernia repair presents with pain and swelling along the hernia sites. He reports changes in bowel habits as a result. He has pre-existing history of obstructive uropathy. He was placed on Flomax preoperatively for 1 week. Now he presents for surgical intervention. Laparoscopic versus open and robotic approaches were discussed including bilateral approach. Benefits and risks including bleeding, infection, chronic groin pain, sterility were reviewed. Placement of mesh was also described. Informed consent was obtained. DESCRIPTION: In the preoperative area, epigastric hernia was marked. The patient was brought to the operating room and laid in supine position. After general induction, the abdomen had been prepped and draped in standard sterile fashion using ChloraPrep. Ioban draping was also placed. Prior to incision, a timeout protocol was confirmed with surgical team regarding patient's name including procedures to be performed. Initial positioning for the robotic assisted ports were selected 20 cm superior to the target anatomy from the pelvis including left lateral trocar sites. A 0 degree 5 mm laparoscopic trocar entry was performed at the left upper quadrant. The abdomen was insufflated to 15 mmHg which he tolerated well. Diagnostic laparoscopy demonstrated no injury to bowel, viscera or mesentery. Moderate peritoneal adhesions incorporating greater omentum to the abdominal wall was found along the epigastrium and prior hernia repair. Additionally, complete recurrence along the inferior medial aspect of his left inguinal hernia was identified. Smaller defect along the right groin was found. Moderately distended bladder was identified. Prior to proceeding with the case, a Conroy catheter was placed. Next, along the epigastrium, 8 mm robot trocar was placed. A 12-mm robotic trocar was placed under direct visualization at the right upper quadrant. An 8 mm port was placed at the left upper quadrant with the removal of the 5 mm trocar. Additional two 8 mm trochars are placed along the left lateral abdominal wall for incisional hernia repair. All trocars were positioned 9-cm apart from each other. The [employer] robot was primed, draped, prepared for docking along upper abdomen of the patient. The patient was positioned 14 steep Trendelenburg position. I then went to the [employer] Xi console. The carpenter's assistant was at bedside for exchange of the robot arms and equipment. Initial attention was brought to extensive lysis of adhesions of greater omentum to the abdominal wall for over 30 minutes using electro-Bovie cautery and scissors including blunt dissection. The omentum was carefully removed from the prior intraperitoneal mesh hernia repair which was intact and without failure. Attention was brought to the left groin. A very large left inguinal defect 5 cm x 4 cm was confirmed with failure of the mesh along the inferior medial border. The mesh was removed sharply using elect ro-Bovie cautery and scissors without damage to the peritoneum. Three separate defects were identified along the left groin including laterally indirect and direct hernia. Residual yellow molded debris was found in the hernia and removed. The left inguinal hernia sac was evaginated whereby the peritoneum was scored using Endo scissors with cautery. The peritoneal sac of the hernia was stripped. The sac was resected and then passed off for further pathological analysis. The size of the hernia defect was 5 cm x 4 cm with intraoperative films obtained. Hernia sac was excised. A 4 x 4 cm subfascial inguinal lipoma was also excised using vessel sealer. The hernia defect was combined and closed using 2-0 V LOC nonabsorbable in a transverse fashion. Incorporation of the conjoined tendon to reinforce a weak posterior floor was performed for closure. As an onlay for intraperitoneal repair, a 15.[address] mesh by Bard was cut in half and entered into the abdominal cavity via the 12 mm trocar. The mesh was tacked to the pelvis using nonabsorbable 2-0 VLOC 9-inch length sutures. Attention was brought to the right groin. Next, the right groin defect was measured 3 x 3-cm hernia with weak posterior floor, Nyhus type IIIb. The right inguinal hernia sac was evaginated whereby the peritoneum was scored using Endo scissors with cautery. The peritoneal sac of the hernia was stripped. A right inguinal lipoma 4 x 3 cm was excised subfascial. The sac was resected and then passed off for further pathological analysis. The size of the hernia defect was 3 cm x 3 cm with intraoperative films obtained. Using nonabsorbable 2-0 VLOC, the peritoneal defect of the right inguinal hernia site was closed in a pursestring fashion.. The defect was found to be completely closed with complete reduction of the right indirect inguinal hernia was confirmed. As an onlay, an 11.[address] mesh by Bard was cut in half and entered into the abdominal cavity via the 8 mm trocar. The mesh was tacked to the pelvis using nonabsorbable 2-0 VLOC 9-inch length sutures. The robot was removed and re-docked for the ventral hernia repair from the left lateral abdominal wall. Incarcerated omental contents were found along the upper midline defect. The defects were reduced with preperitoneal fat including the falciform ligament at the upper midline defect. Kittitian cheese defect incorporating 8 smaller hernias were found superior to his prior incisional hernia repair. His incisional mesh repair was intact. Upper midline defect 4 x 4 cm was identified. The incarcerated contents were reduced as the peritoneal fat was cleaned from the abdominal wall. Next, hemostasis was checked with cautery. The hernia defects were oversewn using #1 nonabsorbable V-lock suture. Next, the cut half of circular ventralight ST mesh 15.2 cm was placed with the rough side towards the abdominal wall as to cover the epigastric defect. 2-0 VLOC 9 inch sutures were used to fixate the mesh. Final endoscopic images were obtained. The robot was undocked from the patient's bedside. I then rescrubbed into the case. The right upper quadrant 12 mm trocar was oversewn using 0 Vicryl and C haven Silverio. Insufflation was released from the abdominal cavity and all instruments were removed from the abdominal cavity. The incisions were re-approximated using 4-0 Monocryl in a running subcuticular fashion. Incisions were cleansed using dilute hydrogen peroxide. Liquid glue was applied to the skin. Abdominal binder was placed. At the end of the procedure, the needle, sponge and instrument counts had been verified correct by the surgical supervisor. The patient had tolerated the procedure well and was taken to the postanesthesia care unit in stable condition. Intraoperative images were reviewed with the patient's family who were pleased with the level of care. Plan - Discharge Summary Discharge Rx Participant: No New Discharge Prescriptions: No Action Aspirin 325 mg PO DAILY Fish Oil/Dha/Epa [Fish Oil 1,200 mg Fish Oil] 1 cap PO DAILY Tamsulosin [Flomax] 0.4 mg PO HS Omeprazole 40 mg PO QAM Ibuprofen [Motrin] 600 mg PO Q8HR PRN #30 tab PRN Reason: Pain Naproxen Sodium [Aleve] 220 mg PO DAILY PRN PRN Reason: Pain Cetirizine HCl [Zyrtec] 10 mg PO QAM Fluticasone Nasal [place] [Flonase Nasal [place]] 1 spr NASAL DAILY Discharge Medication List Aspirin 325 mg PO DAILY 01/13/17 [History] Fish Oil/Dha/Epa [Fish Oil 1,200 mg Fish Oil] 1 cap PO DAILY 02/10/19 [History] Ibuprofen [Motrin] 600 mg PO Q8HR PRN #30 tab 05/10/20 [Rx] Naproxen Sodium [Aleve] 220 mg PO DAILY PRN 05/18/20 [History] Cetirizine HCl [Zyrtec] 10 mg PO QAM 12/24/20 [History] Fluticasone Nasal [place] [Flonase Nasal [place]] 1 spr NASAL DAILY 12/24/20 [History] Omeprazole 40 mg PO QAM 12/24/20 [History] Tamsulosin [Flomax] 0.4 mg PO HS 12/24/20 [History]
[2020-12-26] MEDS ORDERED: TAMSULOSIN 0.4 MG CAP.ER.24H PO SCH (21:00)
[2020-12-26] MEDS: HEPARIN SODIUM,PORCINE/PF 5,000 UNIT/0.5 ML SYRINGE SQ SCH (21:34)
[2020-12-26] MEDS: LACTULOSE 20 GM/30 ML CUP PO SCH (21:34)
[2020-12-26] MEDS: SODIUM CHLORIDE 0.9% 1,000 ML IV SCH (21:35)
[2020-12-26] MEDS: ACETAMINOPHEN TAB 325 MG TAB PO SCH (23:28)
[2020-12-27] MEDS: ACETAMINOPHEN TAB 325 MG TAB PO SCH (05:42)
[2020-12-27 06:17] VITALS: RESP 18
[2020-12-27] MEDS ORDERED: FLUTICASONE 50MCG/SPRAY NASAL 16GM NASAL SCH (09:00)
[2020-12-27] MEDS ORDERED: DOCUSATE 100 MG CAP PO SCH (09:00)
[2020-12-27] MEDS ORDERED: LORATADINE 10 MG TAB PO SCH (09:00)
[2020-12-27] MEDS: LACTULOSE 20 GM/30 ML CUP PO SCH (10:20)
[2020-12-27] MEDS: HEPARIN SODIUM,PORCINE/PF 5,000 UNIT/0.5 ML SYRINGE SQ SCH (10:20)
[2020-12-27] MEDS: SODIUM CHLORIDE 0.9% 1,000 ML IV SCH (10:45)
[2020-12-27] MEDS ORDERED: ACETAMINOPHEN TAB 500 MG TAB PO SCH (12:00)
[2020-12-27] MEDS ORDERED: SODIUM CHLORIDE 0.9% 1,000 ML IV ONE (13:52)
--- NOTE | 2020-12-27 15:19 | P.GSCN ---
History of Present Illness Consult date: 12/27/20 Reason for Consult: Urinary retention History of present illness: This is a 75 yo male that underwent bilateral inguinal hernia repair the ventral hernia repair by Dr. Pagan on December 26. He has history of recurrent postoperative urinary retention. He was placed on Flomax 0.4 mg daily, prior to surgery. He does have obstructive urinary symptoms at baseline, previously followed up with Dr. Goff. He indicated for for his previous for surgeries he developed retention postoperatively, but was not on Flomax at that time. A catheter was placed during surgery, and has been in place since that time. Review of Systems - Constitutional Denies fever, Denies weight loss - EENT Ears, nose, mouth and throat: Denies dysphagia - Cardiovascular Denies chest pain, Denies shortness of breath - Respiratory Denies cough, Denies 7 - Gastrointestinal Reports as per HPI - Genitourinary Reports urinary retention, Denies dysuria, Denies flank pain - Integumentary Denies rash, Denies unusual bruising - Neurological Denies headaches, Denies syncope Past Medical History Past Medical History: Cancer, CVA/TIA, GERD/Reflux Additional Past Medical History / Comment(s): TIA's-no residual effects, barretts esophagus, hx skin cancer. POST OP INFECTION AND IP ADM History of Any Multi-Drug Resistant Organisms: None Reported Past Surgical History: Bowel Resection, Hernia Repair, Orthopedic Surgery Additional Past Surgical History / Comment(s): Colonoscopy with perforation and emergency surgery to repair 2017. Rt shoulder fracture with surgery. bowel rese ction 2019 to remove 12" colon for twisted bowel. Past Anesthesia/Blood Transfusion Reactions: No Reported Reaction Past Psychological History: No Psychological Hx Reported Additional Psychological History / Comment(s): . Smoking Status: Never smoker Past Alcohol Use History: None Reported Additional Past Alcohol Use History / Comment(s): "causal" smoking up until 35 yrs ago, 3-4 beers daily Past Drug Use History: None Reported - Past Family History Mother Family Medical History: Renal Disease Additional Family Medical History / Comment(s): polycystic kidney disease Father Family Medical History: Myocardial Infarction ([place]) Additional Family Medical History / Comment(s): Father at the age of 80yrs from probable [place]. Son(s) Family Medical History: Cancer Medications and Allergies Home Medications Medication Instructions Recorded Confirmed Type Aspirin 325 mg PO DAILY 01/13/17 12/26/20 History Fish Oil/Dha/Epa [Fish Oil 1,200 1 cap PO DAILY 02/10/19 12/26/20 History mg Fish Oil] Ibuprofen [Motrin] 600 mg PO Q8HR PRN #30 tab 05/10/20 12/26/20 Rx Naproxen Sodium [Aleve] 220 mg PO DAILY PRN 05/18/20 12/26/20 History Cetirizine HCl [Zyrtec] 10 mg PO QAM 12/24/20 12/26/20 History Fluticasone Nasal [place] [Flonase 1 spr NASAL DAILY 12/24/20 12/26/20 History Nasal [place]] Omeprazole 40 mg PO QAM 12/24/20 12/26/20 History Tamsulosin [Flomax] 0.4 mg PO HS 12/24/20 12/26/20 History Acetaminophen Tab [Tylenol] 1,000 mg PO Q6HR PRN #30 tab 12/27/20 Rx Allergies Allergy/AdvReac Type Severity Reaction Status Date / Time No Known Allergies Allergy Verified 12/26/20 12:08 Surgical - Exam Vital Signs Temp Pulse Resp BP Pulse Ox 97.4 F L 76 16 157/77 98 12/26/20 12:08 12/26/20 12:08 12/26/20 12:08 12/26/20 12:08 12/26/20 12:08 - General well developed, well nourished, no distress, no pain - Eyes PERRL, normal ocular movement - ENT normal nares, normal mucosa - Respiratory normal expansion, normal respiratory effort - Genitourinary Conroy in place draining clear yellow urine - Psychiatric oriented to time, oriented to person, oriented to place, speech is normal Results - Labs 12/26/20 12:30 12/26/20 12:30 Assessment and Plan Assessment: 75-year-old male status post bilateral inguinal hernia repair, ventral hernia repair. Previous history of postoperative urinary retention -Trial of void today, PVR greater than 300 and can reinsert Conroy and he can follow-up with Dr. Goff for trial of void -Recommend to continue Flomax -Discussed with him given his recurrent urinary retention he might benefit from a TURP in the future. He can follow-up with Dr. Goff as an outpatient to discussed that
--- NOTE | 2020-12-27 15:21 | P.DS ---
Providers Expected date of discharge: 12/27/20 Attending physician: Taryn Aranda Consults: 12/26/20 12:06 Consult Physician Routine Consulting Provider: [facility] Consult Reason/Comments: Regional block Do you want consulting provider notified?: Yes 12/26/20 12:07 Consult Physician Routine Consulting Provider: [facility] Consult Reason/Comments: [facility] Do you want consulting provider notified?: Yes 12/26/20 19:31 Consult Physician Routine Consulting Provider: Slava Goff Consult Reason/Comments: urinary retention, obstructive uropathy Do you want consulting provider notified?: Yes, Notify in am Primary care physician: Lacey Alexandra Hospital Course: Discharge diagnosis 1. Recurrent incarcerated left inguinal hernia 2. Initial right inguinal hernia 3. Recurrent incisional ventral hernia with incarceration 4. 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 Obesity due to excess calories, BMI 30.1 6. Gastroesophageal reflux disease 7. Peritoneal adhesions 8. Left inguinal lipoma 9. Right inguinal lipoma Hospital course The patient is a 75-year-old male who presents with bilateral inguinal hernias with previous left inguinal hernia repair including incisional hernia repair presents with pain and swelling along the hernia sites. He reports changes in bowel habits as a result. He has pre-existing history of obstructive uropathy. He was placed on Flomax preoperatively for 1 week. Patient is status post Robotic-assisted da Rosales Xi laparoscopic lysis of adhesions, Robotic-assisted da Rosales Xi laparoscopic reduction repair of recurrent incarcerated left indirect, direct, inguinal hernia with mesh, Robotic-assisted da Rosales Xi laparoscopic reduction repair of initial incarcerated right indirect inguinal hernia with mesh, Robotic-assisted da Rosales Xi laparoscopic reduction repair of recurrent incarcerated incisional ventral hernia, 15.[address] mesh, Excision of left inguinal lipoma 4 x 4 cm, subfascial, Excision of right inguinal lipoma 4 x 5 cm and Excision of foreign body, left inguinal mesh. Patient tolerated surgery well. His pain is controlled. He is tolerating diet. He has been up and ambulating. He is having flatus. He is afebrile. He has been seen by urology regarding his obstructive uropathy. At this time patient's Conroy catheter has been removed and he is undergoing a post void trial. If he is still retaining greater than 300 mL of urine Conroy catheter will be reinserted prior to discharge. Patient is stable for discharge. Physician Occupational Health Rn note has been reviewed by physician. Signing provider agrees with the documented findings, assessment, and plan of care. Patient Condition at Discharge: Stable Plan - Discharge Summary Discharge Rx Participant: No New Discharge Prescriptions: New Acetaminophen Tab [Tylenol] 1,000 mg PO Q6HR PRN #30 tab PRN Reason: Pain Continue Aspirin 325 mg PO DAILY Fish Oil/Dha/Epa [Fish Oil 1,200 mg Fish Oil] 1 cap PO DAILY Tamsulosin [Flomax] 0.4 mg PO HS Omeprazole 40 mg PO QAM Ibuprofen [Motrin] 600 mg PO Q8HR PRN #30 tab PRN Reason: Pain Naproxen Sodium [Aleve] 220 mg PO DAILY PRN PRN Reason: Pain Cetirizine HCl [Zyrtec] 10 mg PO QAM Fluticasone Nasal [place] [Flonase Nasal [place]] 1 spr NASAL DAILY Discharge Medication List Aspirin 325 mg PO DAILY 01/13/17 [History] Fish Oil/Dha/Epa [Fish Oil 1,200 mg Fish Oil] 1 cap PO DAILY 02/10/19 [History] Ibuprofen [Motrin] 600 mg PO Q8HR PRN #30 tab 05/10/20 [Rx] Naproxen Sodium [Aleve] 220 mg PO DAILY PRN 05/18/20 [History] Cetirizine HCl [Zyrtec] 10 mg PO QAM 12/24/20 [History] Fluticasone Nasal [place] [Flonase Nasal [place]] 1 spr NASAL DAILY 12/24/20 [History] Omeprazole 40 mg PO QAM 12/24/20 [History] Tamsulosin [Flomax] 0.4 mg PO HS 12/24/20 [History] Acetaminophen Tab [Tylenol] 1,000 mg PO Q6HR PRN #30 tab 12/27/20 [Rx] Follow up Appointment(s)/Referral(s): Jarad Archuleta MD [STAFF PHYSICIAN] - 12/31/20 Taryn Aranda MD [STAFF PHYSICIAN] - 12/31/20 Activity/Diet/Wound Care/Special Instructions: Wear abdominal binder at all times for comfort. No lifting over 4 pounds in 4 weeks until Jan 2. You may shower. No bath tub soaks for two weeks until Jan 09 Use Tylenol and ibuprofen scheduled for the next 24-48 hours for best pain relief. Use ice along incisions for the today to prevent swelling. Discharge Disposition: HOME SELF-CARE
[2020-12-27 16:25] VITALS: BP 127/75; PULSE 79; TEMP 98.1
== END 2020-12-27 17:05 | disposition home or self-care (01) ==
LOC: OR 11:28 → 4SSUR 19:29
PROVIDERS: ADMIT Surgery Plastic and Reconstructive Surgery; ATTEND Surgery Plastic and Reconstructive Surgery
DX: K40.31 Unilateral inguinal hernia, with obstruction, without gangrene, recurrent (principal); K43.0 Incisional hernia with obstruction, without gangrene; K43.9 Ventral hernia without obstruction or gangrene; D17.9 Benign lipomatous neoplasm, unspecified; N13.9 Obstructive and reflux uropathy, unspecified; D17.79 Benign lipomatous neoplasm of other sites; D64.9 Anemia, unspecified; K21.9 Gastro-esophageal reflux disease without esophagitis; K22.70 Barrett's esophagus without dysplasia; N42.9 Disorder of prostate, unspecified; E66.09 Other obesity due to excess calories; Z68.30 Body mass index [BMI] 30.0-30.9, adult; K66.0 Peritoneal adhesions (postprocedural) (postinfection); Z20.822 Contact with and (suspected) exposure to COVID-19; Z98.890 Other specified postprocedural states; Z86.73 Personal history of transient ischemic attack (TIA), and cerebral infarction without residual deficits; Z85.828 Personal history of other malignant neoplasm of skin; Z87.891 Personal history of nicotine dependence; Z53.29 Procedure and treatment not carried out because of patient's decision for other reasons; Z79.82 Long term (current) use of aspirin; Z79.899 Other long term (current) drug therapy; Z90.49 Acquired absence of other specified parts of digestive tract; Z82.71 Family history of polycystic kidney; Z82.49 Family history of ischemic heart disease and other diseases of the circulatory system
CPT/HCPCS: 49651; 49650; 49657; 88304; 88305; 80053; 85025; 88302; 87635; G0378 ×2; C1781 ×2; J1100; J2710; J0690; J2405; J3010; J1170 ×2; J2370; J0330; J2704; J1644 ×2